=== PATIENT | female | born 1935 | race Caucasian/White ===

== ENCOUNTER 2016-11-07 11:09 | Inpatient (IN) | payer MEDICARE, OTHER ==
[~2016-11-07] VITALS: Ht 160 cm; Wt 45.2 kg
[2016-11-07] VITALS (9 sets, daily range): BP systolic 138–188; BP diastolic 60–84; PULSE 58–76; RESP 18; TEMP 97.6–98; O2SAT 94–99
[~2016-11-07 11:09] MED LIST: ACET325T PO; AMLO5TAB2 PO; ASPI-110 PO; CITA10TA4 PO; LEVO50TA4 PO; METO25TA3 PO; MIRTA15 PO; TRAZ50TA12 PO
--- NOTE | 2016-11-07 11:58 | PD ---
HPI Chief Complaint: Fall Time Seen by Provider: 11:33 Travel History International Travel<30 days: No Contact w/Intl Traveler<30days: No Traveled to known affect area: No History of Present Illness HPI Patient is a 81-year-old female with history of dementia and who is on baby aspirin, was brought to emergency room from home by EMS after fall today. Patient is alert and oriented to person and place, reports that she does not know what happened today, reports that she must have fallen today. Unsure how long the patient was on the ground prior to being found. Unsure if patient had a syncopal episode. Patient only complains of pelvic pain with b/l hip pain and neck pain. Call made to patient's son further information. PFSH Past Medical History Alzheimer's Disease: Yes Arthritis: Yes Asthma: Yes Autoimmune Disease: No Blood Disorders: No Anxiety: No Depression: Yes Heart Rhythm Problems: No Cancer: No Cardiac Catheterization: Yes Cardiovascular Problems: Yes (OPEN HEART, HTN) High Cholesterol: Yes Chemotherapy: No Chest Pain: Yes Congestive Heart Failure: Yes Coronary Artery Disease: Yes Dementia: Yes Diabetes: Yes Endocrine: Yes Gastrointestinal Disorders: Yes Glaucoma: No Genitourinary: No Headaches: Yes Hypertension: Yes Immune Disorder: No Implanted Vascular Access Dvce: No Insomnia: Yes Kidney Stones: No Musculoskeletal: Yes Neurologic: Yes (PERIPHERAL NEUROPATHY) Psychiatric: No Reproductive: No Respiratory: Yes Myocardial Infarction: Yes (1999) Radiation Therapy: No Renal Failure: No Seizures: No Sickle Cell Disease: No Sleep Apnea: Yes (NO CPAP MACHINE) Thyroid Disease: Yes (HYPO) Ulcer: Yes PNEUMOCCOCAL Vaccine (Year): 1 ?: Not Menopausal: Yes : 3 Para: 3 Past Surgical History Abdominal Surgery: Yes AICD: No Cardiac Surgery: No (CABG TIMES 1999) Coronary Artery Bypass Graft: Yes (x2) Ear Surgery: No Eye Surgery: No Genitourinary Surgery: No Gynecologic Surgery: No Oral Surgery: No Pacemaker: No Thoracic Surgery: No Tonsillectomy: Yes Other Surgery: Yes (NEG BIOPSY LT BREAST) Social History Alcohol Use: No Tobacco Use: No Substance Use: No Allergies-Medications (Allergen,Severity, Reaction): Coded Allergies: Penicillin (Verified Allergy, Severe, 11/07/16) Zocor (Verified Allergy, Severe, 11/07/16) Shrimp (Verified Allergy, Intermediate, RASH AND SWELLING, 11/07/16) Sulfa (Verified Allergy, Mild, 11/07/16) Reported Meds & Prescriptions Reported Meds & Active Scripts Active Acetaminophen 325 Mg Tab 650 Mg PO Q4H PRN Reported Protonix (Pantoprazole Sodium) 40 Mg Tab 40 Mg PO HS Baclofen 10 Mg Tab 10 Mg PO HS Loratadine 10 Mg Tab 10 Mg PO DAILY Mirtazapine 15 Mg Tab 15 Mg PO HS Amlodipine (Amlodipine Besylate) 5 Mg Tab 5 Mg PO HS Trazodone (Trazodone HCl) 50 Mg Tab 50 Mg PO HS Aspirin 81 (Aspirin) 81 Mg Tabdr 81 Mg PO DAILY Metoprolol Tartrate 25 Mg Tab 25 Mg PO BID Levothyroxine (Levothyroxine Sodium) 50 Mcg Tab 50 Mcg PO DAILY Citalopram (Citalopram Hydrobromide) 10 Mg Tab 10 Mg PO DAILY Review of Systems ROS Limitations: Altered Mental Status General / Constitutional: No: Fever Eyes: No: Visual changes HENT: Positive: Neck Pain, No: Headaches Cardiovascular: No: Chest Pain or Discomfort Respiratory: No: Shortness of Breath Gastrointestinal: No: Abdominal Pain Genitourinary: No: Dysuria Musculoskeletal: Positive: Pain (hip pain and pelvic pain) Skin: No Rash Neurologic: Positive: Headache, No: Weakness Psychiatric: No: Depression Endocrine: No: Polydipsia Hematologic/Lymphatic: No: Easy Bruising Physical Exam Narrative GENERAL: NAD SKIN: Warm and dry. HEAD: Atraumatic. Normocephalic. EYES: Pupils equal and round. No scleral icterus. No injection or drainage. ENT: No nasal bleeding or discharge. Mucous membranes pink and moist. NECK: Trachea midline. No JVD. Patient in C-spine precautions - patient with paraspinal muscle tenderness b/l CARDIOVASCULAR: Regular rate and rhythm. No murmur appreciated. RESPIRATORY: No accessory muscle use. Clear to auscultation. Breath sounds equal bilaterally. GASTROINTESTINAL: Abdomen soft, non-tender, nondistended. Hepatic and splenic margins not palpable. MUSCULOSKELETAL: No obvious deformities. No clubbing. No cyanosis. Patient with pain to the right pelvis, patient with bilateral hip pain - patient with pain with range of motion to both hips.. NEUROLOGICAL: Awake and alert to person and place. Normal speech. Data Data Last Documented VS Vital Signs Date Time Temp Pulse Resp B/P Pulse Ox O2 Delivery O2 Flow Rate FiO2 11/07/16 11:38 97.6 60 18 188/80 96 Orders Electrocardiogram (11/07/16 11:43) Prothrombin Time / Inr (Pt) (11/07/16 11:43) Act Partial Throm Time (Ptt) (11/07/16 11:43) Complete Blood Count With Diff (11/07/16 11:43) Comprehensive Metabolic Panel (11/07/16 11:43) Creatine Kinase (Cpk) (11/07/16 11:43) Troponin I (11/07/16 11:43) Urinalysis - C+S If Indicated (11/07/16 11:43) Ct Brain W/O Iv Contrast(Rout) (11/07/16 11:43) Chest, Single Ap (11/07/16 11:43) Ecg Monitoring (11/07/16 11:43) Iv Access Insert/Monitor (11/07/16 11:43) Oximetry (11/07/16 11:43) Blood Glucose (11/07/16 11:43) Ct Cerv Spine W/O Contrast (11/07/16 11:43) Hip, Uni(Ap&Lat) Wo Ap Pelvis (11/07/16 ) Hip, Uni(Ap&Lat) W Ap Pelvis (11/07/16 ) Morphine Inj (Morphine Inj) (11/07/16 12:15) Admit Order (Ed Use Only) (11/07/16 13:37) Mri Brain W&W/O Contrast (11/07/16 ) Labs Laboratory Tests Test 11/07/16 11:41 White Blood Count 6.7 TH/MM3 Red Blood Count 4.21 MIL/MM3 Hemoglobin 12.2 GM/DL Hematocrit 37.2 % Mean Corpuscular Volume 88.4 FL Mean Corpuscular Hemoglobin 29.1 PG Mean Corpuscular Hemoglobin 32.9 % Concent Red Cell Distribution Width 13.7 % Platelet Count 269 TH/MM3 Mean Platelet Volume 7.2 FL Neutrophils (%) (Auto) 65.2 % Lymphocytes (%) (Auto) 24.4 % Monocytes (%) (Auto) 6.5 % Eosinophils (%) (Auto) 3.4 % Basophils (%) (Auto) 0.5 % Neutrophils # (Auto) 4.3 TH/MM3 Lymphocytes # (Auto) 1.6 TH/MM3 Monocytes # (Auto) 0.4 TH/MM3 Eosinophils # (Auto) 0.2 TH/MM3 Basophils # (Auto) 0.0 TH/MM3 CBC Comment DIFF FINAL Differential Comment Prothrombin Time 10.7 SEC Prothromb Time International 1.0 RATIO Ratio Activated Partial 22.9 SEC Thromboplast Time Sodium Level 139 MEQ/L Potassium Level 4.3 MEQ/L Chloride Level 107 MEQ/L Carbon Dioxide Level 28.1 MEQ/L Anion Gap 4 MEQ/L Blood Urea Nitrogen 36 MG/DL Creatinine 1.43 MG/DL Estimat Glomerular Filtration 35 ML/MIN Rate Random Glucose 114 MG/DL Calcium Level 8.9 MG/DL Total Bilirubin 0.3 MG/DL Aspartate Amino Transf 17 U/L (AST/SGOT) Alanine Aminotransferase 15 U/L (ALT/SGPT) Alkaline Phosphatase 75 U/L Total Creatine Kinase 52 U/L Troponin I LESS THAN 0.02 NG/ML Total Protein 7.3 GM/DL Albumin 3.7 GM/DL MDM Medical Decision Making Medical Screen Exam Complete: Yes Emergency Medical Condition: Yes Interpretation(s) Vital Signs Date Time Temp Pulse Resp B/P Pulse Ox O2 Delivery O2 Flow Rate FiO2 11/07/16 11:38 97.6 60 18 188/80 96 Differential Diagnosis Differential includes: Syncope, TIA, CVA, arrhythmia, electrolyte abnormality, mechanical fall, hip fracture, pelvic fracture, UTI, possible seizure Narrative Course Patient is an 81-year-old female who is brought to the emergency room after an unwitnessed fall at home. Patient with history of dementia, cannot provide history of present illness at this time. Call made to Malvin (pt's son) [phone], reports that patient refuses to use her walker, reports that he was downstairs and heard a "loud thump." Reports that she was unresponsive for a few minutes when he went to check up on her. Reports that she did complain of head/neck and hip pain. She did not ambulate after fall. Reports that patient does take a baby aspirin daily. Son reports that patient does have hx of dementia at baseline. 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 CAT scans of the head, neck ordered, hip, chest, bilateral pelvis ordered as well. Labs ordered. We'll continue to monitor patient. CT of the head: 1 cm focal area of high density only seen on a single upper image along the upper left parietal lobe. Diagnosis includes small hemorrhage, radiologist recommends MRI imaging at this time. MRI ordered. Last Impressions Head CT 11/07/16 1143 Signed Impressions: Service Date/Time: Monday, November 07, 2016 12:39 - CONCLUSION: 1 cm focal area of high density seen only on a single upper image along the upper left parietal lobe. The differential diagnosis includes volume averaging of the skull versus small hemorrhage. This could be further evaluated with MRI imaging with multiplanar sequencing. Barrett Cruz MD Chest X-Ray 11/07/16 1143 Signed Impressions: Service Date/Time: Monday, November 07, 2016 12:26 - CONCLUSION: No acute disease. Barrett Cruz MD MRI with no acute hemorrhage Critical Care Narrative Aggregate critical care time was 30 minutes. Time to perform other separately billable procedures was not included in the critical care time. My time did not include minutes spent treating any other patients simultaneously or on activities that did not directly contribute to the patient's treatment. The services I provided to this patient were to treat and/or prevent clinically significant deterioration that could result in: , decompensation, deterioration I provided critical care services requiring my management, as noted below: Chart data review, documentation time, medication orders and management, vital sign assessments/reviewing monitor data, ordering and reviewing lab tests, ordering and interpreting/reviewing x-rays and diagnostic studies, care of the patient and discussion of the patient with the admitting physicians. Physician Communication Physician Communication case discussed with Dr. Streeter's LIABILITY ANALYST who accepts pt to service Diagnosis Primary Impression: Syncope and collapse Additional Impression: possible intracranial hemorrhage Admitting Information Admitting Physician Requests: Rose Khan DO Nov 07, 2016 11:58
[2016-11-07] MEDS ORDERED: MORPHINE SULFATE 4 MG/ML INJ IV PUSH ONE (12:15)
[2016-11-07 12:18] LABS: AUTOMATED NEUTROPHIL # 4.3 TH/MM3 (1.8-7.7); BASOPHIL % 0.5 % (0.0-2.0); EOSINOPHIL # 0.2 TH/MM3 (0-0.4); EOSINOPHIL % 3.4 % (0.0-4.0); HEMATOCRIT 37.2 % (35.0-46.0); HEMO FLAGS DIFF FINAL; LYMPH % 24.4 % (9.0-44.0); LYMPHOCYTE # 1.6 TH/MM3 (1.0-4.8); MEAN CELL VOLUME 88.4 FL (80.0-100.0); MEAN CORPUSCULAR HEMOGLOBIN 29.1 PG (27.0-34.0); MEAN CORPUSCULAR HGB CONC 32.9 % (32.0-36.0); MONO % 6.5 % (0.0-8.0); NEUT % 65.2 % (16.0-70.0); PLATELET COUNT 269 TH/MM3 (150-450); RED BLOOD COUNT 4.21 MIL/MM3 (4.00-5.30); RED CELL DISTRIBUTION WIDTH 13.7 % (11.6-17.2); WHITE BLOOD COUNT 6.7 TH/MM3 (4.0-11.0)
[2016-11-07 12:24] LABS: APTT (PATIENT) 22.9 SEC (24.3-30.1); PROTHROMBIN TIME - PATIENT 10.7 SEC (9.8-11.6)
[2016-11-07 12:35] LABS: ALT (GPT) 15 U/L (10-53); ANION GAP 4 MEQ/L (5-15); AST (GOT) 17 U/L (15-37); BICARBONATE 28.1 MEQ/L (21.0-32.0); BLOOD UREA NITROGEN 36 MG/DL (7-18); CHLORIDE 107 MEQ/L (98-107); GLOMERULAR FILTRATION RATE 35 ML/MIN (>89); POTASSIUM 4.3 MEQ/L (3.5-5.1); SODIUM (NA) 139 MEQ/L (136-145)
[2016-11-07 12:38] LABS: ALKALINE PHOSPHATASE 75 U/L (45-117); TOTAL BILIRUBIN ADULT 0.3 MG/DL (0.2-1.0)
[2016-11-07 12:40] LABS: CREATINE KINASE 52 U/L (26-192)
--- NOTE | 2016-11-07 12:55 | RADRPT ---
EXAM DATE/TIME: 11/07/2016 12:39 [facility] COMPARISON: CT BRAIN W/O CONTRAST, February 20, 2016, 16:54. CT BRAIN W/O CONTRAST, July 24, 2016, 21:26. INDICATIONS : Trauma, fall. RADIATION DOSE: 34.22 CTDIvol (mGy) MEDICAL HISTORY : Alzheimer's Hypertension. Diabetes mellitus type 2. SURGICAL HISTORY : None. ENCOUNTER: Initial ACUITY: 1 day PAIN SCALE: 0/10 LOCATION: cranial TECHNIQUE: Multiple contiguous axial images were obtained of the head. Using automated exposure control and adj ustment of the mA and/or kV according to patient size, radiation dose was kept as low as reasonably a chievable to obtain optimal diagnostic quality images. FINDINGS: CEREBRUM: The ventricles are normal for age with mild atrophic change. No evidence of midline shift, or acute i nfarction. On image #28 there is a 1 cm focal area of high density along the left high parietal lobe only see on this image. No extra-axial fluid collections are seen. POSTERIOR FOSSA: The cerebellum and brainstem are intact. The 4th ventricle is midline. The cerebellopontine angle i s unremarkable. EXTRACRANIAL: The visualized portion of the orbits is intact. SKULL: The calvaria is intact. No evidence of skull fracture. CONCLUSION: 1 cm focal area of high density seen only on a single upper image along the upper left parietal lobe. The differential diagnosis includes volume averaging of the skull versus small hemorrhage. This coul d be further evaluated with MRI imaging with multiplanar sequencing. Barrett Cruz MD on November 07, 2016 at 12:50 Board Certified Radiologist. This report was verified electronically.
--- NOTE | 2016-11-07 13:00 | RADRPT ---
EXAM DATE/TIME: 11/07/2016 12:26 [facility] COMPARISON: CHEST SINGLE AP, January 23, 2016, 8:26. INDICATIONS : Pain from fall. MEDICAL HISTORY : None. SURGICAL HISTORY : CABG. ENCOUNTER: Initial ACUITY: 1 day PAIN SCORE: 6/10 LOCATION: Right chest FINDINGS: A single view of the chest demonstrates the lungs to be symmetrically aerated without evidence of mas s, infiltrate or effusion. The patient is status post median sternotomy. The cardiomediastinal conto urs are unremarkable. Chronic rotator cuff degeneration is noted in the right shoulder with superior migration of the humeral head.. CONCLUSION: No acute disease. Barrett Cruz MD on November 07, 2016 at 12:57 Board Certified Radiologist. This report was verified electronically.
--- NOTE | 2016-11-07 13:12 | RADRPT ---
EXAM DATE/TIME: 11/07/2016 12:41 [facility] COMPARISON: CT CERVICAL SPINE W/O CONTRAST, February 20, 2016, 16:54. INDICATIONS: Trauma, fall. RADIATION DOSE: 34.22 CTDIvol (mGy) MEDICAL HISTORY: Alzheimer's Hypertension. Diabetes mellitus type 2. SURGICAL HISTORY: None. ENCOUNTER: Initial ACUITY: 1 day PAIN SCALE: 0/10 LOCATION: Neck TECHNIQUE: Volumetric scanning of the cervical spine was performed. Multiplanar reconstructions in the sagittal, coronal and oblique axial planes were performed. Using automated exposure control and adjustment o f the mA and/or kV according to patient size, radiation dose was kept as low as reasonably achievable to obtain optimal diagnostic quality images. FINDINGS: There is good visualization of the cervical spine. Degenerative changes are seen at C1 and C2. C2-C3: The bony spinal canal is normal in size. No evidence of disc bulge or herniation. The neural forami na are bilaterally patent. C3-C4: Mild uncinate ridging is present with minimal bilateral neural foramina encroachment. C4-C5: Moderate uncinate ridging is present with mild neural foramina encroachment on the left when compared to the right. C5-C6: Moderate uncinate ridging is present without significant spinal stenosis or neural foramina encroachm ent. C6-C7: There is minimal central stenosis. Neural foramina adequate. C7-T1: Unremarkable. CONCLUSION: Degenerative changes without fracture. Melvin Bustillos MD FACR on November 07, 2016 at 13:04 Board Certified Radiologist. This report was verified electronically.
--- NOTE | 2016-11-07 13:14 | RADRPT ---
EXAM DATE/TIME: 11/07/2016 12:29 [facility] COMPARISON: No previous studies available for comparison. INDICATIONS: Pain from fall. MEDICAL HISTORY: None. SURGICAL HISTORY: None. ENCOUNTER: Initial ACUITY: 1 day PAIN SCORE: 10/10 LOCATION: Bilateral pelvis FINDINGS: Degenerative changes are seen about the right hip. Alignment is anatomic. Fracture is not appreciat ed. CONCLUSION: Degenerative change without fracture. Melvin Bustillos MD FACR on November 07, 2016 at 13:03 Board Certified Radiologist. This report was verified electronically.
--- NOTE | 2016-11-07 13:22 | RADRPT ---
EXAM DATE/TIME: 11/07/2016 12:34 [facility] COMPARISON: No previous studies available for comparison. INDICATIONS: Pain from fall. MEDICAL HISTORY: None. SURGICAL HISTORY: None. ENCOUNTER: Initial ACUITY: 1 day PAIN SCORE: 10/10 LOCATION: Bilateral pelvis FINDINGS: Degenerative changes are seen about the left hip. Alignment is anatomic. Fracture is not appreciate d. CONCLUSION: Degenerative change without fracture. Melvin Bustillos MD FACR on November 07, 2016 at 13:13 Board Certified Radiologist. This report was verified electronically.
[2016-11-07] MEDS ORDERED: ACETAMINOPHEN 325 MG TAB PO PRN (14:30)
[2016-11-07] MEDS ORDERED: SODIUM CHLORIDE 0.9% FLUSH 5 ML FLUSH FLUSH PRN (14:30)
[2016-11-07] MEDS ORDERED: ONDANSETRON HCL 4 MG/2 ML VIAL IVP PRN (14:30)
[2016-11-07] MEDS ORDERED: NALOXONE HCL 0.4 MG/ML AMP IV PRN (14:30)
[2016-11-07] MEDS ORDERED: PROT40TA PO (15:07)
[2016-11-07] MEDS ORDERED: BACL10TA PO (15:07)
[2016-11-07] MEDS ORDERED: LORA10TA PO (15:07)
[2016-11-07] MEDS ORDERED: GADOBENATE DIM PF 529 MG/ML 10ML VIAL (for RAD MRI) IV ONE (15:53)
--- NOTE | 2016-11-07 15:53 | RADRPT ---
EXAM DATE/TIME: 11/07/2016 15:10 [facility] COMPARISON: CT BRAIN W/O CONTRAST, November 07, 2016, 12:39. INDICATIONS : Trauma patient status post fall with abnormal head CT demonstrating a 1 cm focal area of high density along the upper left parietal lobe. CONTRAST: 10 cc Multihance (gadobenate) IV MEDICAL HISTORY : Stroke Dementia. SURGICAL HISTORY : CABG Tonsillectomy. ENCOUNTER: Initial ACUITY: 2 day PAIN SCORE: 0/10 LOCATION: Brain TECHNIQUE: Multiplanar, multisequence MRI of the brain was performed both prior to and following the administrat ion of paramagnetic contrast. FINDINGS: CEREBRUM: The ventricles are normal for age. No evidence of midline shift, mass lesion, hemorrhage or acute in farction. No extraaxial fluid collections are seen. The pituitary gland and suprasellar cistern are normal in configuration. WHITE MATTER: No significant signal abnormalities are seen in the white matter. POSTERIOR FOSSA: The cerebellum and brainstem are intact. The 4th ventricle is midline. The cerebellopontine angle is unremarkable. The cerebellar tonsils are normal in position. DIFFUSION IMAGING: No focal areas of restricted diffusion are seen. No evidence of acute infarction. EXTRACRANIAL: The visualized portions of the orbits and paranasal sinuses are unremarkable. There is soft tissue sw elling over the left parietal bone. POST-CONTRAST: No abnormal areas of parenchymal or dural enhancement. No evidence of blood-brain barrier breakdown. CONCLUSION: 1. No acute hemorrhage, mass or infarction. 2. No correlate for the focal area of increased density seen on the CT. This is consistent with volum e averaging with the adjacent skull. 3. Soft tissue swelling over the left parietal bone. Barrett Cruz MD on November 07, 2016 at 15:48 Board Certified Radiologist. This report was verified electronically.
--- NOTE | 2016-11-07 16:36 | HHI.HP ---
[facility] Chapito Gary MD Admission Diagnosis Syncope, Possible ICH Diagnoses: (Alicia Araiza) Travel History International Travel<30 Days: No Contact w/Intl Traveler <30 Da: No Traveled to Known Affected Are: No (Alicia Araiza) History of Present Illness This is an 81 year old elderly female with PMHx of dementia, previous falls, CKD , CAD and previous CABG, diet controlled diabetes. She is on baby ASA. She was brought in via EMS after fall. According to son, she is ambulatory with walker, has dementia but able to feed self and walk to bathroom. She is supposed to use walker but refuses often. She has had previous falls in the past, last one was July 2016 and required hospitalization for monitoring. Son, Malvin, who is the caregiver heard the patient fall and found her laying on her back. She was just staring, non responsive, not following commands. After 15 minutes, she started to respond, was able to answer basic questions. She complained of neck, bilat hip, pelvic pain. She is usually alert and oriented to self and others. She doesn't know what happened, doesn't recall preceding symptoms. According to son, she received PT at home and has been doing well. He thinks that she tripped on her shoes, as there is a new rug that he put in her room because he was afraid that she would fall and hit the floor. Pt. evaluated in the ED, initial CT of head done showed questionable area of high density. Brain MRI just completed doesn't show any bleeding. Imaging studies don't show any acute findings. Last Impressions Head CT 11/07/16 1143 Signed Impressions: Service Date/Time: Monday, November 07, 2016 12:39 - CONCLUSION: 1 cm focal area of high density seen only on a single upper image along the upper left parietal lobe. The differential diagnosis includes volume averaging of the skull versus small hemorrhage. This could be further evaluated with MRI imaging with multiplanar sequencing. Barrett Cruz MD Chest X-Ray 11/07/16 1143 Signed Impressions: Service Date/Time: Monday, November 07, 2016 12:26 - CONCLUSION: No acute disease. Barrett Cruz MD Hip and Pelvis X-Ray 11/07/16 0000 Signed Impressions: Service Date/Time: Monday, November 07, 2016 12:29 - CONCLUSION: Degenerative change without fracture. Melvin Bustillos MD FACR Hip X-Ray 11/07/16 0000 Signed Impressions: Service Date/Time: Monday, November 07, 2016 12:34 - CONCLUSION: Degenerative change without fracture. Melvin Bustillos MD FACR Brain MRI 11/07/16 0000 Signed Impressions: Service Date/Time: Monday, November 07, 2016 15:10 - CONCLUSION: 1. No acute hemorrhage, mass or infarction. 2. No correlate for the focal area of increased density seen on the CT. This is consistent with volume averaging with the adjacent skull. 3. Soft tissue swelling over the left parietal bone. Barrett Cruz MD Laboratory work up essentially unremarkable, creat slightly more elevated than norm. Son denies any recent fever, chills. Had been eating okay. Pt. admitted for further evaluation and treatment. (Alicia Araiza) Review of Systems ROS Limitations: Poor Historian Musculoskeletal: COMPLAINS OF: Joint pain, Back pain, Neck pain (Alicia Araiza) Past Family Social History Past Medical History 1. Coronary disease with history of bypass in 1999 2. Hypertension 3. Diabetes which her [id number] states is diet controlled. 4. Hyperlipidemia 5. Alzheimer's 6. Arthritis 7. Hypothyroidism 8. Chronic renal insufficiency per the patient's son. Past Surgical History 1. She had a bypass in 1999. 2. She has had heart catheterizations. 3. Left breast biopsy that was benign. Reported Medications Reported Meds & Active Scripts Active Acetaminophen 325 Mg Tab 650 Mg PO Q4H PRN Reported Protonix (Pantoprazole Sodium) 40 Mg Tab 40 Mg PO HS Baclofen 10 Mg Tab 10 Mg PO HS Loratadine 10 Mg Tab 10 Mg PO DAILY Mirtazapine 15 Mg Tab 15 Mg PO HS Amlodipine (Amlodipine Besylate) 5 Mg Tab 5 Mg PO HS Trazodone (Trazodone HCl) 50 Mg Tab 50 Mg PO HS Aspirin 81 (Aspirin) 81 Mg Tabdr 81 Mg PO DAILY Metoprolol Tartrate 25 Mg Tab 25 Mg PO BID Levothyroxine (Levothyroxine Sodium) 50 Mcg Tab 50 Mcg PO DAILY Citalopram (Citalopram Hydrobromide) 10 Mg Tab 10 Mg PO DAILY (Alicia Araiza) Allergies: Coded Allergies: Penicillin (Verified Allergy, Severe, 11/07/16) Zocor (Verified Allergy, Severe, 11/07/16) Shrimp (Verified Allergy, Intermediate, RASH AND SWELLING, 11/07/16) Sulfa (Verified Allergy, Mild, 11/07/16) Active Ordered Medications Inpatient Medications Acetaminophen (Tylenol) 650 mg Q4H PRN PO TEMP > 100.4; Start 11/07/16 at 14:30 IV Flush (NS Flush) 2 ml BID FLUSH ; Start 11/07/16 at 21:00 Morphine Sulfate 4 mg 4 mg ONCE ONCE IV PUSH Last administered on 11/07/16t 12 :15; Start 11/07/16 at 12:15; Stop 11/07/16 at 12:16; Status DC Naloxone HCl (Narcan Inj) 0.4 mg UNSCH PRN IV SEE LABEL COMMENTS; Start at 14:30 Ondansetron HCl (Zofran Inj) 4 mg Q6H PRN IVP NAUSEA OR VOMITING; Start at 14:30 Sodium Chloride (NS 1000 ml Inj) 1,000 ml @ 100 mls/hr Q10H IV ; Start at 15:00 Family History Positive for coronary artery disease. Social History Pt lives at home with son, Malvin, who is her caregiver. She has dementia. Uses a walker but forgets most of the time. Has frequent falls. The patient is a nonsmoker. Denies alcohol or illicit drugs. (Alicia Araiza) Physical Exam Vital Signs Vital Signs Date Time Temp Pulse Resp B/P Pulse Ox O2 Delivery O2 Flow Rate FiO2 11/07/16 14:29 97.6 60 18 140/65 94 Room Air 11/07/16 11:38 97.6 60 18 188/80 96 Physical Exam GENERAL: This is a well-nourished, well-developed patient, in no apparent distress. SKIN: No rashes, ecchymoses or lesions. Cool and dry. HEAD: Atraumatic. Normocephalic. No temporal or scalp tenderness. EYES: Pupils equal round and reactive. Extraocular motions intact. No scleral icterus. No injection or drainage. ENT: Nose without bleeding, purulent drainage or septal hematoma. Throat without erythema, tonsillar hypertrophy or exudate. Uvula midline. Airway patent. NECK: Trachea midline. No JVD or lymphadenopathy.Cervical collar in place, mild tenderness post. nect. CARDIOVASCULAR: Regular rate and rhythm without murmurs, gallops, or rubs. RESPIRATORY: Clear to auscultation. Breath sounds equal bilaterally. No wheezes , rales, or rhonchi. GASTROINTESTINAL: Abdomen soft, non-tender, nondistended. No hepato-splenomegaly , or palpable masses. No guarding. MUSCULOSKELETAL: C/O pain to right hip with extension, no deformity note, no leg length discrepancy. C/O pain to right elbow, no deformity, mild bruising noted. No other joint abnormality. Bilat legs with 2+ pedal pulses. No pedal edema. NEUROLOGICAL: Awake, alert to self, son, place. Not sure of city. No focal deficits. Speech clear. Speaks and understands Hebrew, some Iranian. Follows simple commands. Pt. with dementia. Laboratory Laboratory Tests Test 11/07/16 11:41 White Blood Count 6.7 Red Blood Count 4.21 Hemoglobin 12.2 Hematocrit 37.2 Mean Corpuscular Volume 88.4 Mean Corpuscular Hemoglobin 29.1 Mean Corpuscular Hemoglobin 32.9 Concent Red Cell Distribution Width 13.7 Platelet Count 269 Mean Platelet Volume 7.2 Neutrophils (%) (Auto) 65.2 Lymphocytes (%) (Auto) 24.4 Monocytes (%) (Auto) 6.5 Eosinophils (%) (Auto) 3.4 Basophils (%) (Auto) 0.5 Neutrophils # (Auto) 4.3 Lymphocytes # (Auto) 1.6 Monocytes # (Auto) 0.4 Eosinophils # (Auto) 0.2 Basophils # (Auto) 0.0 CBC Comment DIFF FINAL Differential Comment Prothrombin Time 10.7 Prothromb Time International 1.0 Ratio Activated Partial 22.9 Thromboplast Time Sodium Level 139 Potassium Level 4.3 Chloride Level 107 Carbon Dioxide Level 28.1 Anion Gap 4 Blood Urea Nitrogen 36 Creatinine 1.43 Estimat Glomerular Filtration 35 Rate Random Glucose 114 Calcium Level 8.9 Total Bilirubin 0.3 Aspartate Amino Transf 17 (AST/SGOT) Alanine Aminotransferase 15 (ALT/SGPT) Alkaline Phosphatase 75 Total Creatine Kinase 52 Troponin I LESS THAN 0.02 Total Protein 7.3 Albumin 3.7 (Alicia Araiza) Result Diagram: 11/07/16 1141 11/07/16 1141 Imaging Last Impressions Head CT 11/07/16 1143 Signed Impressions: Service Date/Time: Monday, November 07, 2016 12:39 - CONCLUSION: 1 cm focal area of high density seen only on a single upper image along the upper left parietal lobe. The differential diagnosis includes volume averaging of the skull versus small hemorrhage. This could be further evaluated with MRI imaging with multiplanar sequencing. Barrett Cruz MD Chest X-Ray 11/07/16 1143 Signed Impressions: Service Date/Time: Monday, November 07, 2016 12:26 - CONCLUSION: No acute disease. Barrett Cruz MD Brain MRI 11/07/16 0000 Signed Impressions: Service Date/Time: Monday, November 07, 2016 15:10 - CONCLUSION: 1. No acute hemorrhage, mass or infarction. 2. No correlate for the focal area of increased density seen on the CT. This is consistent with volume averaging with the adjacent skull. 3. Soft tissue swelling over the left parietal bone. Barrett Cruz MD (Alicia Araiza) Assessment and Plan Problem List: (1) Fall (2) Syncope and collapse (3) CAD (coronary artery disease) (4) Hypertension (5) Hyperlipidemia (6) Hypothyroidism (7) DM (diabetes mellitus) (8) Hx of CABG (9) Depression Assessment and Plan Admit to Dr. Streeter 81 year old elderly female admitted after recurrent fall, hx dementia. Initial CT concerning for bleed, brain MRI shows no bleed. Unclear if syncope, vs seizure or mechanical fall. S/P fall with closed head injury, no bleed. Etiology unclear, possible syncope vs seizure -Neuro checks -Continue with IVF -Telemetry monitoring -Orthostatics q shift x 3 -EEG -2D echo -Carotid US -Hold ASA for now -PT for evaluation and treatment. Dementia -not on medications -monitor Hx Depression -Continue with home meds CKD III -Continue with cautious -Monitor BMP Hx CAD, CABG, stable -Monitor -Continue home medications HTN -Continue home meds Diet controlled diabetes, stable -Monitor for now SCDs for DVT prophylaxis Home medications reviewed, initiated as indicated Plan of care discussed with attending, RN, and pt's sone. Further management of the patient will be dependent on the hospital course. This patient was seen by myself and Dr. Streeter, this H/P is written on his behalf. (Alicia Araiza) Assessment and Plan Patient seen and examined on the day of admission [id number] time spent with patient Meds and labs reviewed Chart reviewed Discussed with RN Discussed with ROSA about plan of care Discussed with patien and family member at bedside (Ninoska Streeter MD) Physician Certification 2 Midnight Certification Type: Admission for Inpatient Services Order for Inpatient Services The services are ordered in accordance with Medicare regulations or non- Medicare payer requirements, as applicable. In the case of services not specified as inpatient-only, they are appropriately provided as inpatient services in accordance with the 2-midnight benchmark. Estimated LOS (days): 2 2 days is the estimated time the patient will need to remain in the hospital, assuming treatment plan goals are met and no additional complications. Post-Hospital Plan: Not yet determined (Alicia Araiza) Problem Qualifiers (1) Fall: Qualified Code: W19.XXXA - Fall, initial encounter (2) CAD (coronary artery disease): Qualified Code: I25.10 - Coronary artery disease involving [place] coronary artery of [place] heart without angina pectoris (3) Hypertension: Qualified Code: I10 - Essential hypertension (4) Hyperlipidemia: Qualified Code: E78.5 - Hyperlipidemia, unspecified hyperlipidemia type (5) Hypothyroidism: Qualified Code: E03.9 - Hypothyroidism, unspecified type (6) DM (diabetes mellitus): Qualified Code: E11.9 - Type 2 diabetes mellitus without complication, without long-term current use of insulin (7) Depression: Qualified Code: F32.9 - Depression, unspecified depression type Alicia Araiza Nov 07, 2016 16:36 Ninoska Streeter MD Nov 08, 2016 15:13
[2016-11-07] MEDS: SODIUM CHLOR 0.9% 1000 ML INJ 1,000 ML IV SCH (16:55)
--- NOTE | 2016-11-07 17:53 | RADRPT ---
EXAM DATE/TIME: 11/07/2016 16:32 [place] COMPARISON: US CAROTID ARTERIES, June 22, 2012, 7:40. INDICATIONS : Syncope. MEDICAL HISTORY : Hypothyroidism. Hypercholesterolemia. Alzheimer's. Hearing loss. Cerebrovascular accident. [place]. Peripheral neuropathy. heart attack. Congestive heart failure. Coronary artery disease. Hyperlipidemi a. Hypertension. Asthma. Sleep apnea. Ulcer. . Arthritis. Diabetes. Buipolar disorder. Depre ssion. Measles. Insomnia. SURGICAL HISTORY : Tonsillectomy. CABG. Breast biopsy. Right rotator cuff repair. Cardiac catheterization. ENCOUNTER: Subsequent ACUITY: 1 day PAIN SCORE: 0/10 LOCATION: Bilateral neck PEAK SYSTOLIC VELOCITIES (cm/sec): ICA/CCA RATIO: Right: 1.1 Left: 1.2 ICA: Right: 98 Left: 119 CCA: Right: 91 Left: 103 ECA: Right: 110 Left: 113 VERTEBRAL: Right: 58 antegrade Left: 77 antegrade Elevated flow velocities and ICA/CCA ratios have been found to correlate with increased degrees of vessel stenosis, calculated as percentage of diameter relative to a normal segment of distal ICA/CCA FINDINGS: RIGHT CAROTID: No significant stenosis is visualized. Mild plaque is present. The waveforms are within normal limits . LEFT CAROTID: No significant stenosis is visualized. Mild plaque is present. The waveforms are within normal limit s. VERTEBRAL ARTERIES: Antegrade flow is seen in both vertebral arteries. MISCELLANEOUS: None. CONCLUSION: Mild bilateral plaquing with no evidence of stenosis. Barrett Cruz MD on November 07, 2016 at 17:51 Board Certified Radiologist. This report was verified electronically.
[2016-11-07] MEDS: SODIUM CHLORIDE 0.9% FLUSH 5 ML FLUSH FLUSH SCH (21:00)
[2016-11-07] MEDS: PANTOPRAZOLE SOD 40 MG DELAYED RELEASE TAB PO SCH (21:20)
[2016-11-07] MEDS: MIRTAZAPINE 15 MG TAB PO SCH (21:20)
[2016-11-07] MEDS: traZODone HCL 50 MG TAB PO SCH (21:21)
[2016-11-07] MEDS: METOPROLOL TARTRATE 25 MG TAB PO SCH (21:21)
[2016-11-07] MEDS: amLODIPine BESYLATE 5 MG TAB PO SCH (21:21)
[2016-11-08] VITALS (28 sets, daily range): BP systolic 112–169; BP diastolic 44–80; PULSE 59–95; RESP 18; TEMP 97–98; O2SAT 98–99
[2016-11-08] MEDS: SODIUM CHLOR 0.9% 1000 ML INJ 1,000 ML IV SCH ×2 (01:00→11:00)
[2016-11-08] MEDS: LEVOTHYROXINE SODIUM 50 MCG TAB PO SCH (05:46)
[2016-11-08] MEDS: SODIUM CHLORIDE 0.9% FLUSH 5 ML FLUSH FLUSH SCH ×2 (07:43→20:42)
[2016-11-08] MEDS: LORATADINE 10 MG TAB PO SCH (08:20)
[2016-11-08] MEDS: CITALOPRAM HYDROBROMIDE 20 MG TAB PO SCH (08:21)
[2016-11-08] MEDS: METOPROLOL TARTRATE 25 MG TAB PO SCH ×2 (08:21→20:42)
--- NOTE | 2016-11-08 10:44 | HHI.PR ---
Subjective Remarks Patient lying on a recliner without any apparent distress Offering no complaint Denies any headache dizziness Denies any chest pain shortness of breath And denies any abdominal pain nausea vomiting Denies any genitourinary symptoms Review of systems a 10 point system unremarkable Objective Objective Results - Vital Signs Date Time Temp Pulse Resp B/P Pulse Ox O2 Delivery O2 Flow Rate FiO2 11/08/16 10:06 67 11/08/16 09:36 97.0 62 18 140/68 98 11/08/16 09:24 68 11/08/16 08:06 67 11/08/16 07:40 67 11/08/16 06:00 68 11/08/16 05:00 68 11/08/16 04:06 62 18 145/65 99 142/60 169/78 11/08/16 04:00 60 11/08/16 03:00 59 11/08/16 02:00 60 11/08/16 01:00 60 11/08/16 00:00 60 11/07/16 23:00 58 11/07/16 23:00 60 18 145/70 99 11/07/16 22:00 62 11/07/16 21:00 76 11/07/16 20:00 60 11/07/16 19:00 66 11/07/16 19:00 98.0 60 18 146/60 99 11/07/16 18:44 98.0 58 18 138/84 98 11/07/16 17:29 60 18 141/65 99 Nasal Cannula 2 11/07/16 14:29 97.6 60 18 140/65 94 Room Air 11/07/16 11:38 97.6 60 18 188/80 96 I/O 11/07/16 11/07/16 11/07/16 11/08/16 11/08/16 11/08/16 07:00 15:00 23:00 07:00 15:00 23:00 Intake Total 1440 ml Balance 1440 ml Intake Oral 240 ml IV Total 1200 ml # Voids 2 # Bowel Movements 0 Result Diagram: 11/07/16 1141 11/07/16 1141 Imaging Last Impressions Head CT 11/07/16 1143 Signed Impressions: Service Date/Time: Monday, November 07, 2016 12:39 - CONCLUSION: 1 cm focal area of high density seen only on a single upper image along the upper left parietal lobe. The differential diagnosis includes volume averaging of the skull versus small hemorrhage. This could be further evaluated with MRI imaging with multiplanar sequencing. Barrett Cruz MD Chest X-Ray 11/07/16 1143 Signed Impressions: Service Date/Time: Monday, November 07, 2016 12:26 - CONCLUSION: No acute disease. Barrett Cruz MD Brain MRI 11/07/16 0000 Signed Impressions: Service Date/Time: Monday, November 07, 2016 15:10 - CONCLUSION: 1. No acute hemorrhage, mass or infarction. 2. No correlate for the focal area of increased density seen on the CT. This is consistent with volume averaging with the adjacent skull. 3. Soft tissue swelling over the left parietal bone. Barrett Cruz MD Other Results Laboratory Tests Test 11/07/16 11:41 White Blood Count 6.7 Red Blood Count 4.21 Hemoglobin 12.2 Hematocrit 37.2 Mean Corpuscular Volume 88.4 Mean Corpuscular Hemoglobin 29.1 Mean Corpuscular Hemoglobin 32.9 Concent Red Cell Distribution Width 13.7 Platelet Count 269 Mean Platelet Volume 7.2 Neutrophils (%) (Auto) 65.2 Lymphocytes (%) (Auto) 24.4 Monocytes (%) (Auto) 6.5 Eosinophils (%) (Auto) 3.4 Basophils (%) (Auto) 0.5 Neutrophils # (Auto) 4.3 Lymphocytes # (Auto) 1.6 Monocytes # (Auto) 0.4 Eosinophils # (Auto) 0.2 Basophils # (Auto) 0.0 CBC Comment DIFF FINAL Differential Comment Prothrombin Time 10.7 Prothromb Time International 1.0 Ratio Activated Partial 22.9 Thromboplast Time Sodium Level 139 Potassium Level 4.3 Chloride Level 107 Carbon Dioxide Level 28.1 Anion Gap 4 Blood Urea Nitrogen 36 Creatinine 1.43 Estimat Glomerular Filtration 35 Rate Random Glucose 114 Calcium Level 8.9 Total Bilirubin 0.3 Aspartate Amino Transf 17 (AST/SGOT) Alanine Aminotransferase 15 (ALT/SGPT) Alkaline Phosphatase 75 Total Creatine Kinase 52 Troponin I LESS THAN 0.02 Total Protein 7.3 Albumin 3.7 Physical Exam Physical Exam GENERAL: This is a well-nourished, well-developed patient, in no apparent distress. SKIN: No rashes, ecchymoses or lesions. Cool and dry. HEAD: Atraumatic. Normocephalic. No temporal or scalp tenderness. EYES: Pupils equal round and reactive. Extraocular motions intact. No scleral icterus. No injection or drainage. ENT: Airway patent. NECK: Trachea midline. No JVD or lymphadenopathy. CARDIOVASCULAR: Regular rate and rhythm without murmurs, gallops, or rubs. RESPIRATORY: Clear to auscultation. Breath sounds equal bilaterally. No wheezes , rales, or rhonchi. GASTROINTESTINAL: Abdomen soft, non-tender, nondistended. No hepato-splenomegaly , or palpable masses. No guarding. MUSCULOSKELETAL: C/O pain to right hip with extension, no deformity note, no leg length discrepancy. C/O pain to right elbow, no deformity, mild bruising noted. No other joint abnormality. Bilat legs with 2+ pedal pulses. No pedal edema. NEUROLOGICAL: Awake, alert to self, son, place. Not sure of city. No focal deficits. Speech clear. Speaks and understands [place], some [place]. Follows simple commands. Pt. with dementia. A/P Assessment and Plan (1) Fall (2) Syncope and collapse (3) CAD (coronary artery disease) (4) Hypertension (5) Hyperlipidemia (6) Hypothyroidism (7) DM (diabetes mellitus) (8) Hx of CABG (9) Depression Plan 81 year old elderly female admitted after recurrent fall, hx dementia. Initial CT concerning for bleed, brain MRI shows no bleed. Unclear if syncope, vs seizure or mechanical fall. S/P fall with closed head injury, no bleed. Etiology unclear, possible syncope vs seizure -Neuro checks -Continue with IVF -Telemetry monitoring -Orthostatics q shift x 3 -EEG -2D echo -Carotid US -Hold ASA for now -PT for evaluation and treatment. Dementia -not on medications -monitor Hx Depression -Continue with home meds CKD III -Continue with cautious -Monitor BMP Hx CAD, CABG, stable -Monitor -Continue home medications HTN -Continue home meds. Is stable Diet controlled diabetes, stable -Monitor for now . Continue sliding scale insulin a Radiological report reviewed no bleed Labs reviewed On telemetry Awaiting EEG SCDs for DVT prophylaxis Home medications reviewed, initiated as indicated Plan of care discussed with attending, RN, and pt. Further management of the patient will be dependent on the hospital course. Ninoska Streeter MD Nov 08, 2016 10:44
--- NOTE | 2016-11-08 14:12 | EC ---
Study Study Date:11/08/2016 STUDY CONCLUSIONS SUMMARY LEFT VENTRICLE: The cavity size was normal. Wall thickness was increased in a pattern of mild LVH. Systolic function was normal. The estimated ejection fraction was in the range of 60% to 65%. Wall motion was normal; there were no regional wall motion abnormalities. If LV function is below 40, please consider prescribing an ACEI or ARB or document rationale for non-use. PROCEDURE DATA STUDY STATUS: Elective. Procedure: Transthoracic echocardiography. Image quality was good. Scanning was performed from the parasternal, apical, and subcostal acoustic windows. Study completion: The patient tolerated the procedure well. Transthoracic echocardiography. M-mode, complete 2D, complete spectral Doppler, and color Doppler. Patient status: Inpatient. CARDIAC ANATOMY LEFT VENTRICLE: The cavity size was normal. Wall thickness was increased in a pattern of mild LVH. Systolic function was normal. The estimated ejection fraction was in the range of 60% to 65%. Wall motion was normal; there were no regional wall motion abnormalities. AORTIC VALVE: Trileaflet; normal thickness leaflets. Doppler: Transvalvular velocity was within the normal range. There was no stenosis. No regurgitation. Mean gradient: 9mm Hg (S). Peak gradient: 18mm Hg (S). AORTA: Aortic root: The aortic root was normal in size. MITRAL VALVE: Structurally normal valve. Doppler: Transvalvular velocity was within the normal range. There was no evidence for stenosis. Trace regurgitation. Peak gradient: 3mm Hg (D). LEFT ATRIUM: The atrium was normal in size. RIGHT VENTRICLE: The cavity size was normal. Wall thickness was normal. Systolic pressure was within the normal range. PULMONIC VALVE: Doppler: Transvalvular velocity was within the normal range. There was no evidence for stenosis. No regurgitation. TRICUSPID VALVE: Structurally normal valve. Doppler: Transvalvular velocity was within the normal range. Trace regurgitation. PULMONARY ARTERY: The main pulmonary artery was normal-sized. Systolic pressure was within the normal range. RIGHT ATRIUM: The atrium was normal in size. PERICARDIUM: There was no pericardial effusion. SYSTEMIC VEINS: Inferior vena cava: The vessel was normal in size. BASIC MEASUREMENTS ADULT NORMAL Left ventricle LV internal dimension, ED, chordal level, *40 mm 43-52 PLAX LV internal dimension, ES, chordal level, 26 mm 23-38 PLAX Fractional shortening, chordal level, PLAX 35 % >29 LV posterior wall thickness, ED 8.71 mm IVS/LVPW ratio, ED 1.19 <1.3 Ventricular septum Septal thickness, ED 10.4 mm Aortic valve Leaflet separation 17 mm 15-26 Left atrium Anterior-posterior dimension 35 mm Right ventricle RV internal dimension, ED, PLAX 19.2 mm 19-38 BASIC MEASUREMENTS ADULT NORMAL Aortic valve Leaflet separation 17 mm 15-26 Aorta Root diameter, ED 27 mm 20-37 DOPPLER MEASUREMENTS ADULT NORMAL Main pulmonary artery Pressure, S 30 mm Hg =30 Aortic valve Peak velocity, S 211 cm/s Mean velocity, S 140 cm/s VTI, S 42.2 cm Mean gradient, S 9 mm Hg Peak gradient, S 18 mm Hg Mitral valve Peak E-wave velocity 86.4 cm/s Peak A-wave velocity 92.3 cm/s Peak gradient, D 3 mm Hg Peak E/A ratio 0.9 Maximal regurgitant velocity 342 cm/s Tricuspid valve Regurgitant peak velocity 250 cm/s Peak RV-RA gradient, S 25 mm Hg Maximal regurgitant velocity 250 cm/s Systemic veins Estimated CVP 5 mm Hg Right ventricle RV pressure, S *30 mm Hg <30 LEGEND: Mean values are shown as u=mean value. Asterisk (*) carney values outside specified normal range. Prepared and signed by Shubham Gordon [id number]
--- NOTE | 2016-11-08 15:33 | EKG ---
Date Performed: 11/07/2016 Time Performed: 17:01:11 PTAGE: 81 years EKG: SINUS BRADYCARDIA MARKED LEFT AXIS DEVIATION Poor R wave progression across the precordium Nonspecific ST change Compared to prior tracing no significant change. MN interval continues to be mariel rderline prolonged ABNORMAL ECG PREVIOUS TRACING : 07/24/2016 21.09 DOCTOR: Kemar Clement Interpretating Date/Time 11/08/2016 15:32:48
[2016-11-08] MEDS: traZODone HCL 50 MG TAB PO SCH (20:42)
[2016-11-08] MEDS: MIRTAZAPINE 15 MG TAB PO SCH (20:44)
[2016-11-08] MEDS: amLODIPine BESYLATE 5 MG TAB PO SCH (20:44)
[2016-11-08] MEDS: PANTOPRAZOLE SOD 40 MG DELAYED RELEASE TAB PO SCH (20:44)
[2016-11-09] VITALS (26 sets, daily range): BP systolic 111–157; BP diastolic 55–72; PULSE 68–79; RESP 16–18; TEMP 98.1–99.1; O2SAT 96–99
[2016-11-09] MEDS: LEVOTHYROXINE SODIUM 50 MCG TAB PO SCH (05:42)
[2016-11-09 07:31] LABS: BICARBONATE 26.1 MEQ/L (21.0-32.0); POTASSIUM 3.9 MEQ/L (3.5-5.1)
[2016-11-09] MEDS: LORATADINE 10 MG TAB PO SCH (08:47)
[2016-11-09] MEDS: METOPROLOL TARTRATE 25 MG TAB PO SCH ×2 (08:47→21:24)
[2016-11-09] MEDS: SODIUM CHLORIDE 0.9% FLUSH 5 ML FLUSH FLUSH SCH ×2 (08:47→21:24)
[2016-11-09] MEDS: CITALOPRAM HYDROBROMIDE 20 MG TAB PO SCH (08:47)
--- NOTE | 2016-11-09 14:35 | HHI.PR ---
Subjective Remarks Appetite good No Chest pain no shortness of breath No dizziness Alert (Sri Benton) Objective Objective Results - Vital Signs Date Time Temp Pulse Resp B/P Pulse Ox O2 Delivery O2 Flow Rate FiO2 11/09/16 13:00 77 11/09/16 12:00 74 11/09/16 11:00 98.1 68 17 111/55 99 11/09/16 11:00 73 11/09/16 10:00 72 11/09/16 09:00 70 11/09/16 08:00 99.1 76 17 129/67 96 11/09/16 08:00 73 11/09/16 07:00 70 11/09/16 06:00 70 11/09/16 05:00 70 11/09/16 04:00 70 11/09/16 03:45 98.2 72 18 125/72 96 11/09/16 03:00 72 11/09/16 02:00 72 11/09/16 01:00 74 11/09/16 00:00 72 11/08/16 23:30 71 18 140/68 98 11/08/16 23:00 74 11/08/16 22:00 74 11/08/16 21:00 72 11/08/16 20:00 70 11/08/16 19:00 98.0 72 18 112/44 98 11/08/16 19:00 73 11/08/16 18:03 82 11/08/16 16:00 95 11/08/16 15:25 98.0 71 18 138/78 98 11/08/16 15:08 64 I/O 11/08/16 11/08/16 11/08/16 11/09/16 11/09/16 11/09/16 07:00 15:00 23:00 07:00 15:00 23:00 Intake Total 1440 ml 375 ml 240 ml Balance 1440 ml 375 ml 240 ml Intake Oral 240 ml 375 ml 240 ml IV Total 1200 ml # Voids 2 2 # Bowel Movements 0 0 (Sri Benton) Result Diagram: 11/07/16 1141 11/09/16 0632 ROS General: Other (10 point ROS done. Occasional cough otherwise negative assessments) Pulmonary: Cough (Sri Benton) Physical Exam Physical Exam PHYSICAL EXAMINATION GENERAL: This is a well-developed, well-nourished female who appears to be in no acute distress. She is alert and awake, responds to verbal stimuli. HEAD: Normocephalic without any lesion or mass noted. Facial features appear symmetric. OROPHARYNGEAL: Oropharynx without erythema or edema. NECK: Supple. No nuchal rigidity or lymphadenopathy. Trachea midline without deviation. CARDIAC: Regular rhythm, regular rate, S1 and S2 are heard. Murmur systolic grade 3/6, sternal border; no gallops or rubs. LUNGS: Clear to auscultation bilaterally. No wheeze, rhonchi or rales. No use of accessory muscles on inspiration or expiration. ABDOMEN: Soft, nontender, no organomegaly or masses. Bowel sounds are heard in all four quadrants. No rebound. No guarding. EXTREMITIES: no edema. Pulses equal bilateral. no cyanosis. NEUROLOGICAL: Patient mood and affect appropriate. No focal deficit SKIN:Warm and moist, dry Objective Remarks I'm resting fairly well today (Sri Benton) A/P Assessment and Plan (1) Fall (2) Syncope and collapse (3) CAD (coronary artery disease) (4) Hypertension (5) Hyperlipidemia (6) Hypothyroidism (7) DM (diabetes mellitus) (8) Hx of CABG (9) Depression Plan 81 year old elderly female admitted after recurrent fall, hx dementia. Initial CT concerning for bleed, brain MRI shows no bleed. Unclear if syncope, vs seizure or mechanical fall. S/P fall with closed head injury, no bleed. Etiology unclear, possible syncope vs seizure, no further syncopal episodes nor dizziness -Neuro checks, stable every 4 when necessary -Continue with IVF, gentle hydration taken by mouth fluids well -Telemetry monitoring, regular rhythm no known ectopy -Orthostatics q shift x 3, BP stable Good Appetite eating 100% -PT for evaluation and treatment. Dementia -not on medications -monitor Hx Depression -Continue with home meds CKD III -Continue with cautious -Monitor BMP Hx CAD, CABG, stable -Monitor -Continue home medications HTN -Continue home meds. Is stable Diet controlled diabetes, stable -Monitor for now . Continue sliding scale insulin a Radiological report reviewed no bleed Labs reviewed, acute kidney injury improved, hydration Pelvic and hip x-rays showed no fracture, Carotid ultrasound shows no stenosis Echocardiogram shows EF 60-65%. No wall motion abnormalities. Valves okay Awaiting EEG, pending SCDs for DVT prophylaxis Protonix PUD prophylaxis Hold ASA secondary to fall Patient is pending EEG, could possibly discharge tomorrow Discharge Planning Possible Thursday pending EEG (Sri Benton) Assessment and Plan Patient seen and examined as above Labs reviewed Awaiting EEG Discussed with RN Discussed with patient Plan of care discussed with HORSE SHOW JUDGE (Ninoska Streeter MD) Sri Benton Nov 09, 2016 14:35 Ninoska Streeter MD Nov 09, 2016 15:10
[2016-11-09] MEDS: traZODone HCL 50 MG TAB PO SCH (21:24)
[2016-11-09] MEDS: amLODIPine BESYLATE 5 MG TAB PO SCH (21:25)
[2016-11-09] MEDS: MIRTAZAPINE 15 MG TAB PO SCH (21:25)
[2016-11-09] MEDS: PANTOPRAZOLE SOD 40 MG DELAYED RELEASE TAB PO SCH (21:25)
[2016-11-10] VITALS (26 sets, daily range): BP systolic 124–162; BP diastolic 67–76; PULSE 58–84; RESP 16–18; TEMP 98–98.7; O2SAT 97–99
[2016-11-10] MEDS: LEVOTHYROXINE SODIUM 50 MCG TAB PO SCH (05:44)
[2016-11-10] MEDS: METOPROLOL TARTRATE 25 MG TAB PO SCH ×2 (10:11→21:29)
[2016-11-10] MEDS: SODIUM CHLORIDE 0.9% FLUSH 5 ML FLUSH FLUSH SCH ×2 (10:11→21:29)
[2016-11-10] MEDS: LORATADINE 10 MG TAB PO SCH (10:11)
[2016-11-10] MEDS: CITALOPRAM HYDROBROMIDE 20 MG TAB PO SCH (10:11)
--- NOTE | 2016-11-10 14:27 | HHI.PR ---
Subjective Remarks Appetite good, eating 100% No Chest pain no shortness of breath No dizziness Alert (Sri Benton) Objective Objective Results - Vital Signs Date Time Temp Pulse Resp B/P Pulse Ox O2 Delivery O2 Flow Rate FiO2 11/10/16 13:00 80 11/10/16 12:00 69 11/10/16 11:00 67 11/10/16 11:00 98.6 71 17 141/67 97 11/10/16 10:00 70 11/10/16 09:00 72 11/10/16 08:00 74 11/10/16 07:30 98.7 71 17 142/67 98 11/10/16 07:00 58 11/10/16 06:00 66 11/10/16 05:00 60 11/10/16 04:00 60 11/10/16 03:50 66 16 134/73 98 11/10/16 03:00 66 11/10/16 02:00 66 11/10/16 01:00 68 11/10/16 00:00 72 11/09/16 23:45 72 16 141/70 97 11/09/16 23:00 77 11/09/16 22:00 74 11/09/16 21:00 78 11/09/16 20:00 78 11/09/16 19:00 98.3 72 16 155/72 99 11/09/16 19:00 76 11/09/16 18:00 79 11/09/16 17:00 76 11/09/16 16:00 73 11/09/16 15:00 98.3 75 17 157/72 96 11/09/16 15:00 74 I/O 11/09/16 11/09/16 11/09/16 11/10/16 11/10/16 11/10/16 07:00 15:00 23:00 07:00 15:00 23:00 Intake Total 240 ml 600 ml 240 ml Balance 240 ml 600 ml 240 ml Intake Oral 240 ml 600 ml 240 ml # Voids 2 5 2 # Bowel Movements 0 (Sri Benton) Result Diagram: 11/07/16 1141 11/09/16 0632 ROS General: Fatigue (mild), Other (10 point review done. Mild minimal weakness, otherwise systems negative) (Sri Benton) Physical Exam Physical Exam PHYSICAL EXAMINATION GENERAL: This is a well-developed, well-nourished female who appears to be in no acute distress. She is alert and awake, responds to verbal stimuli. HEAD: Normocephalic without any lesion or mass noted. Facial features appear symmetric. OROPHARYNGEAL: Oropharynx without erythema or edema. NECK: Supple. No nuchal rigidity or lymphadenopathy. Trachea midline without deviation. CARDIAC: Regular rhythm, regular rate, S1 and S2 are heard. Murmur none; no gallops or rubs. LUNGS: Clear to auscultation bilaterally. no wheeze, rhonchi or rale. No use of accessory muscles on inspiration or expiration. ABDOMEN: Soft, nontender, no organomegaly or masses. Bowel sounds are heard in all four quadrants. No rebound. No guarding. EXTREMITIES: no edema. Pulses equal bilateral. . NEUROLOGICAL: Patient mood and affect appropriate. No focal deficit SKIN:Warm and moist Objective Remarks I'm doing okay. I don't remember them coming in here to do a test (Sri Benton) A/P Assessment and Plan (1) Fall (2) Syncope and collapse (3) CAD (coronary artery disease) (4) Hypertension (5) Hyperlipidemia (6) Hypothyroidism (7) DM (diabetes mellitus) (8) Hx of CABG (9) Depression Plan 81 year old elderly female admitted after recurrent fall, hx dementia. Initial CT concerning for bleed, brain MRI shows no bleed. Unclear if syncope, vs seizure or mechanical fall. S/P fall with closed head injury, no bleed. Etiology unclear, possible syncope vs seizure, no further syncopal episodes nor dizziness -Neuro checks, stable every 4 when necessary -Continue with IVF, gentle hydration taken by mouth fluids well -Telemetry monitoring, regular rhythm no known ectopy -Orthostatics q shift x 3, BP stable Good Appetite eating 100% -PT for evaluation and treatment. Dementia -not on medications -monitor Hx Depression -Continue with home meds CKD III -Continue with cautious -Monitor BMP Hx CAD, CABG, stable -Monitor -Continue home medications HTN -Continue home meds. Is stable Diet controlled diabetes, stable -Monitor for now . Continue sliding scale insulin a Radiological report reviewed no bleed Labs reviewed, acute kidney injury improved, hydration Pelvic and hip x-rays showed no fracture, Carotid ultrasound shows no stenosis Echocardiogram shows EF 60-65%. No wall motion abnormalities. Valves okay Awaiting EEG, pending SCDs for DVT prophylaxis Protonix PUD prophylaxis Hold ASA secondary to fall Patient is pending EEG, could possibly discharge tomorrow. EEG was canceled. Staff is researching reason . Patient is unaware if she refuses test or not. Will discuss with Dr. Streeter, patient seen on his behalf Discharge planning in process (Sri Benton) Assessment and Plan Patient seen and examined Patient refused EEG Overall a stable and good condition Above note reviewed Plan of care discussed with [employer] REMOVAL SUPERVISOR Discussed with RN Discussed with binder caser Josue discharge her today. (Ninoska Streeter MD) Sri Betnon Nov 10, 2016 14:27 Ninoska Streeter MD Nov 10, 2016 16:12
[2016-11-10] MEDS: amLODIPine BESYLATE 5 MG TAB PO SCH (21:28)
[2016-11-10] MEDS: MIRTAZAPINE 15 MG TAB PO SCH (21:29)
[2016-11-10] MEDS: traZODone HCL 50 MG TAB PO SCH (21:29)
[2016-11-10] MEDS: PANTOPRAZOLE SOD 40 MG DELAYED RELEASE TAB PO SCH (21:29)
[2016-11-11] VITALS (16 sets, daily range): BP systolic 105–144; BP diastolic 58–60; PULSE 67–93; RESP 17–18; TEMP 98.4–99.5; O2SAT 95–98
[2016-11-11] MEDS: LEVOTHYROXINE SODIUM 50 MCG TAB PO SCH (05:48)
[2016-11-11] MEDS: CITALOPRAM HYDROBROMIDE 20 MG TAB PO SCH (08:39)
[2016-11-11] MEDS: SODIUM CHLORIDE 0.9% FLUSH 5 ML FLUSH FLUSH SCH (08:39)
[2016-11-11] MEDS: METOPROLOL TARTRATE 25 MG TAB PO SCH (08:40)
[2016-11-11] MEDS: LORATADINE 10 MG TAB PO SCH (08:40)
--- NOTE | 2016-11-11 14:36 | HHI.PR ---
Subjective Remarks Patient lying on a recliner without any apparent distress Offering no complaint Denies any headache dizziness Denies any chest pain shortness of breath And denies any abdominal pain nausea vomiting Denies any genitourinary symptoms Review of systems a 10 point system unremarkable Objective Objective Results - Vital Signs Date Time Temp Pulse Resp B/P Pulse Ox O2 Delivery O2 Flow Rate FiO2 11/11/16 14:01 74 11/11/16 13:00 76 11/11/16 12:00 78 11/11/16 11:00 98.7 77 17 112/58 98 11/11/16 11:00 69 11/11/16 10:00 71 11/11/16 09:00 93 11/11/16 08:00 99.5 82 17 105/60 95 11/11/16 08:00 79 11/11/16 07:00 85 11/11/16 06:00 75 11/11/16 05:00 70 11/11/16 04:00 78 11/11/16 03:00 79 11/11/16 03:00 98.4 79 18 144/60 98 11/11/16 02:00 76 11/11/16 01:00 74 11/11/16 00:00 78 11/10/16 23:00 98.5 76 16 126/69 98 11/10/16 23:00 76 11/10/16 22:00 80 11/10/16 21:00 82 11/10/16 20:00 78 11/10/16 19:00 84 11/10/16 19:00 98.2 84 18 162/76 99 11/10/16 18:00 76 11/10/16 17:00 72 11/10/16 16:00 70 11/10/16 15:00 98.0 72 17 124/73 99 11/10/16 15:00 80 I/O 11/10/16 11/10/16 11/10/16 11/11/16 11/11/16 11/11/16 07:00 15:00 23:00 07:00 15:00 23:00 Intake Total 240 ml 720 ml 720 ml Balance 240 ml 720 ml 720 ml Intake Oral 240 ml 720 ml 720 ml # Voids 2 6 3 # Bowel Movements 0 Result Diagram: 11/07/16 1141 11/09/16 0632 Imaging Last Impressions Head CT 11/07/16 1143 Signed Impressions: Service Date/Time: Monday, November 07, 2016 12:39 - CONCLUSION: 1 cm focal area of high density seen only on a single upper image along the upper left parietal lobe. The differential diagnosis includes volume averaging of the skull versus small hemorrhage. This could be further evaluated with MRI imaging with multiplanar sequencing. Barrett Cruz MD Chest X-Ray 11/07/16 1143 Signed Impressions: Service Date/Time: Monday, November 07, 2016 12:26 - CONCLUSION: No acute disease. Barrett Cruz MD Brain MRI 11/07/16 0000 Signed Impressions: Service Date/Time: Monday, November 07, 2016 15:10 - CONCLUSION: 1. No acute hemorrhage, mass or infarction. 2. No correlate for the focal area of increased density seen on the CT. This is consistent with volume averaging with the adjacent skull. 3. Soft tissue swelling over the left parietal bone. Barrett Cruz MD Physical Exam Physical Exam GENERAL: This is a well-nourished, well-developed patient, in no apparent distress. SKIN: No rashes, ecchymoses or lesions. Cool and dry. HEAD: Atraumatic. Normocephalic. No temporal or scalp tenderness. EYES: Pupils equal round and reactive. Extraocular motions intact. No scleral icterus. No injection or drainage. ENT: Airway patent. NECK: Trachea midline. No JVD or lymphadenopathy. CARDIOVASCULAR: Regular rate and rhythm without murmurs, gallops, or rubs. RESPIRATORY: Clear to auscultation. Breath sounds equal bilaterally. No wheezes , rales, or rhonchi. GASTROINTESTINAL: Abdomen soft, non-tender, nondistended. No hepato-splenomegaly , or palpable masses. No guarding. MUSCULOSKELETAL: Bilat legs with 2+ pedal pulses. No pedal edema. NEUROLOGICAL: Awake, alert to self, son, place. Not sure of city. No focal deficits. Speech clear. Speaks and understands Kinyarw[place], some Monegasque. Follows simple commands. Pt. with dementia. A/P Assessment and Plan (1) Fall (2) Syncope and collapse (3) CAD (coronary artery disease) (4) Hypertension (5) Hyperlipidemia (6) Hypothyroidism (7) DM (diabetes mellitus) (8) Hx of CABG (9) Depression Plan 81 year old elderly female admitted after recurrent fall, hx dementia. Initial CT concerning for bleed, brain MRI shows no bleed. Unclear if syncope, vs seizure or mechanical fall. S/P fall with closed head injury, no bleed. Etiology unclear, possible syncope vs seizure, no further syncopal episodes nor dizziness -Encourage by mouth intake -Telemetry monitoring, regular rhythm no known ectopy -Neurological [place] Good Appetite eating 100% -PT for evaluation and treatment. Dementia -not on medications -monitor Hx Depression -Continue with home meds CKD III -Continue with cautious -Monitor BMP Hx CAD, CABG, stable -Monitor -Continue home medications HTN -Continue home meds. Is stable Diet controlled diabetes, stable -Monitor for now . Continue sliding scale insulin a Radiological report reviewed no bleed Labs reviewed, acute kidney injury improved, hydration Pelvic and hip x-rays showed no fracture, Carotid ultrasound shows no stenosis Echocardiogram shows EF 60-65%. No wall motion abnormalities. Valves okay She refuses EEG SCDs for DVT prophylaxis Protonix PUD prophylaxis Hold ASA secondary to fall Discussed with patient Discussed with case aide about DC planning hopefully today to SNF Ninoska Streeter MD Nov 11, 2016 14:36
--- NOTE | 2017-01-17 21:07 | HHI.DS ---
Discharge Summary Admission Date Nov 08, 2016 at 12:35 Discharge Date: Nov 11, 2016 Admitting Diagnosis Syncope, Possible ICH (1) Fall (2) Syncope and collapse (3) CAD (coronary artery disease) (4) Hypertension (5) Hyperlipidemia (6) Hypothyroidism (7) DM (diabetes mellitus) (8) Hx of CABG (9) Depression Imaging Last Impressions Head CT 11/07/16 1143 Signed Impressions: Service Date/Time: Monday, November 07, 2016 12:39 - CONCLUSION: 1 cm focal area of high density seen only on a single upper image along the upper left parietal lobe. The differential diagnosis includes volume averaging of the skull versus small hemorrhage. This could be further evaluated with MRI imaging with multiplanar sequencing. Barrett Cruz MD Chest X-Ray 11/07/16 1143 Signed Impressions: Service Date/Time: Monday, November 07, 2016 12:26 - CONCLUSION: No acute disease. Barrett Cruz MD Cervical Spine CT 11/07/16 1143 Signed Impressions: Service Date/Time: Monday, November 07, 2016 12:41 - CONCLUSION: Degenerative changes without fracture. Melvin Bustillos MD FACR Hip and Pelvis X-Ray 11/07/16 0000 Signed Impressions: Service Date/Time: Monday, November 07, 2016 12:29 - CONCLUSION: Degenerative change without fracture. Melvin Bustillos MD FACR Hip X-Ray 11/07/16 0000 Signed Impressions: Service Date/Time: Monday, November 07, 2016 12:34 - CONCLUSION: Degenerative change without fracture. Melvin Bustillos MD FACR Carotid Artery Ultrasound 11/07/16 0000 Signed Impressions: Service Date/Time: Monday, November 07, 2016 16:32 - CONCLUSION: Mild bilateral plaquing with no evidence of stenosis. Barrett Cruz MD Brain MRI 11/07/16 0000 Signed Impressions: Service Date/Time: Monday, November 07, 2016 15:10 - CONCLUSION: 1. No acute hemorrhage, mass or infarction. 2. No correlate for the focal area of increased density seen on the CT. This is consistent with volume averaging with the adjacent skull. 3. Soft tissue swelling over the left parietal bone. Barrett Cruz MD Hospital Course This is an 81 year old elderly female with PMHx of dementia, previous falls, CKD , CAD and previous CABG, diet controlled diabetes. She is on baby ASA. She was brought in via EMS after fall. According to son, she is ambulatory with walker, has dementia but able to feed self and walk to bathroom. She is supposed to use walker but refuses often. She has had previous falls in the past, last one was July 2016 and required hospitalization for monitoring. Son, Malvin, who is the caregiver heard the patient fall and found her laying on her back. She was just staring, non responsive, not following commands. After 15 minutes, she started to respond, was able to answer basic questions. She complained of neck, bilat hip, pelvic pain. She is usually alert and oriented to self and others. She doesn't know what happened, doesn't recall preceding symptoms. According to son, she has received PT at home and had been doing well. He thinks that she tripped on her shoes, as there is a new rug that he put in her room because he was afraid that she would fall and hit the floor. Pt. evaluated in the ED, initial CT of head done showed questionable area of high density. Brain MRI just completed doesn't show any bleeding. Imaging studies don't show any acute findings. Last Impressions Head CT 11/07/16 1143 Signed Impressions: Service Date/Time: Monday, November 07, 2016 12:39 - CONCLUSION: 1 cm focal area of high density seen only on a single upper image along the upper left parietal lobe. The differential diagnosis includes volume averaging of the skull versus small hemorrhage. This could be further evaluated with MRI imaging with multiplanar sequencing. Barrett Cruz MD Chest X-Ray 11/07/16 1143 Signed Impressions: Service Date/Time: Monday, November 07, 2016 12:26 - CONCLUSION: No acute disease. Barrett Cruz MD Hip and Pelvis X-Ray 11/07/16 0000 Signed Impressions: Service Date/Time: Monday, November 07, 2016 12:29 - CONCLUSION: Degenerative change without fracture. Melvin Bustillos MD FACR Hip X-Ray 11/07/16 0000 Signed Impressions: Service Date/Time: Monday, November 07, 2016 12:34 - CONCLUSION: Degenerative change without fracture. Melvin Bustillos MD FACR Brain MRI 11/07/16 0000 Signed Impressions: Service Date/Time: Monday, November 07, 2016 15:10 - CONCLUSION: 1. No acute hemorrhage, mass or infarction. 2. No correlate for the focal area of increased density seen on the CT. This is consistent with volume averaging with the adjacent skull. 3. Soft tissue swelling over the left parietal bone. Barrett Cruz MD Laboratory work up essentially unremarkable, creat slightly more elevated than norm. Son denied any recent fever, chills. Had been eating okay. Pt. admitted for further evaluation and treatment. (1) Fall (2) Syncope and collapse (3) CAD (coronary artery disease) (4) Hypertension (5) Hyperlipidemia (6) Hypothyroidism (7) DM (diabetes mellitus) (8) Hx of CABG (9) Depression During the course of the hospitalization, the following events took place 81 year old elderly female admitted after recurrent fall, hx dementia. Initial CT concerning for bleed, brain MRI shows no bleed. Unclear if syncope, vs seizure or mechanical fall. S/P fall with closed head injury, no bleed. Etiology unclear, possible syncope vs seizure, no further syncopal episodes nor dizziness -Put on telemetry monitoring, neurological checks Physical therapy order -EEG ordered, however patient refused -Patient remained neurologically intact Dementia -not on medications -monitored -Remained stable Hx Depression -Continued with home meds CKD III -Initially put on IV fluids -Monitored BMP Hx CAD, CABG, stable -Monitored -Continued home medications HTN -Continue home meds. Is stable Diet controlled diabetes, stable -Ordered Accu-Cheks with sliding scale Radiological report reviewed no bleed Labs reviewed, acute kidney injury improved, after hydration Pelvic and hip x-rays showed no fracture, Carotid ultrasound shows no stenosis Echocardiogram shows EF 60-65%. No wall motion abnormalities. Valves okay She refused EEG SCDs for DVT prophylaxis Protonix PUD prophylaxis Held ASA secondary to fall Case management consulted for DC planning Discharge plan discussed with patient's family Patient stable for discharge Patient was discharged to SNF Pt Condition on Discharge: Good Discharge Disposition: Discharge Home Discharge Instructions DIET: Follow Instructions for: Heart Healthy Diet Activities you can perform: Weight Bearing as Gita Follow up Referrals: PCP Follow-up - 1 Week Continued Medications: Acetaminophen (Acetaminophen) 325 Mg Tab 650 MG PO Q4H PRN PAIN #30 TAB Amlodipine (Amlodipine) 5 Mg Tab 5 MG PO HS Blood Pressure Management #[address] Ref [address] (Aspirin 81) 81 Mg Tabdr 81 MG PO DAILY Ref 0 TAB Baclofen (Baclofen) 10 Mg Tab 10 MG PO HS Ref 0 TAB Citalopram (Citalopram) 10 Mg Tab 10 MG PO DAILY Control Depression #30 Ref 0 TAB Levothyroxine (Levothyroxine) 50 Mcg Tab 50 MCG PO DAILY Thyroid #30 Ref 0 TAB Loratadine (Loratadine) 10 Mg Tab 10 MG PO DAILY Allergy Management Ref 0 TAB Metoprolol Tartrate (Metoprolol Tartrate) 25 Mg Tab 25 MG PO BID #60 Ref 0 TAB Mirtazapine (Mirtazapine) 15 Mg Tab 15 MG PO HS Depression Control #30 Ref 0 TAB Pantoprazole (Protonix) 40 Mg Tab 40 MG PO HS Reflux #30 Ref 0 TAB Trazodone (Trazodone) 50 Mg Tab 50 MG PO HS Control Depression #30 Ref 0 TAB Alicia Araiza Jan 17, 2017 21:07
== END 2016-11-11 16:58 | DRG 312 ==
LOC: NEDAMB 11:09 → NEDH 13:39 → NEDA 14:13 → HCIN 17:30 → OBSVTOIN 11-08 12:35 → HCIN 11-09 09:30
PROVIDERS: ADMIT Specialist; ATTEND Specialist
DX: R55 Syncope and collapse (principal); N17.9 Acute kidney failure, unspecified; E11.22 Type 2 diabetes mellitus with diabetic chronic kidney disease; I13.0 Hypertensive heart and chronic kidney disease with heart failure and stage 1 through stage 4 chronic kidney disease, or unspecified chronic kidney disease; I50.9 Heart failure, unspecified; I25.810 Atherosclerosis of coronary artery bypass graft(s) without angina pectoris; S09.90XA Unspecified injury of head, initial encounter; G30.9 Alzheimer's disease, unspecified; F02.80 Dementia in other diseases classified elsewhere, unspecified severity, without behavioral disturbance, psychotic disturbance, mood disturbance, and anxiety; N18.3 Chronic kidney disease, stage 3 (moderate); Z95.1 Presence of aortocoronary bypass graft; E78.5 Hyperlipidemia, unspecified; E03.9 Hypothyroidism, unspecified; G47.30 Sleep apnea, unspecified; I25.2 Old myocardial infarction; J45.909 Unspecified asthma, uncomplicated; R29.6 Repeated falls; W01.0XXA Fall on same level from slipping, tripping and stumbling without subsequent striking against object, initial encounter; Y92.009 Unspecified place in unspecified non-institutional (private) residence as the place of occurrence of the external cause; F32.9 Major depressive disorder, single episode, unspecified; Z79.4 Long term (current) use of insulin
CPT/HCPCS: 70450; 70553; 71010; 72125; 73502; 76937; 80048; 80053; 82550; 83735; 84484; 85025; 85610; 85730; 93005; 93306; 93880; 96374; A9577; G0378; J2270; J7030

== ENCOUNTER 2017-01-26 18:44 | Observation (INO) | payer MEDICARE, OTHER ==
[~2017-01-26] VITALS: Ht 165.1 cm; Wt 60.0 kg
[~2017-01-26 18:44] MED LIST changes: +BACL10TA PO; +LORA10TA PO; +PROT40TA PO
[2017-01-26 18:47] VITALS: BP 146/65; PULSE 64; RESP 17; TEMP 98.2; O2SAT 99
--- NOTE | 2017-01-26 18:53 | PD ---
Physical Exam Time Seen by Provider: 18:49 Narrative 81yo F w/ family stating slurred speech, dizziness, jaw pain, blurred vision, and vomited x1 today. Diet controlled diabetic. BSG in triage 155. VS reviewed. Patient seen in triage. Awaiting bed placement. Data Data Last Documented VS Vital Signs Date Time Temp Pulse Resp B/P Pulse Ox O2 Delivery O2 Flow Rate FiO2 01/26/17 18:47 98.2 64 17 146/65 99 MDM Supervised Visit with MITALI: Milka Martinez January 26, 2017 18:53
--- NOTE | 2017-01-26 19:28 | PD ---
HPI Chief Complaint: Neuro Symptoms/ Deficits Time Seen by Provider: 19:01 Travel History International Travel<30 days: No Contact w/Intl Traveler<30days: No Traveled to known affect area: No History of Present Illness HPI 81-year-old woman who presents to the emergency department brought in by family for altered mental status. 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 History is obtained mostly from the family with her. Family reports that since she fell last was in the hospital in October of this year she does really has done well. She went to a care home facility but been at home with her son for the past month or so. They report that she fell once a week or so ago but only down to her knees, did not hit her head. Yesterday she had a very good day was very lucid and awake and alert and strong. Today she's been lethargic, fatigued, weak and dizzy, with speech difficulties including slurred speech, and right sided facial droop that has been stuttering. She also had one episode of nausea and vomiting which is unusual. Over the past week or so she's also had increased incontinence. History Past Medical History Narrative Medical Alzheimer's type dementia Chronic kidney disease 9 CAD, history of CABG in 1999 Diet-controlled diabetes Hyperlipidemia Remote history of CVA/TIA with some residual memory problems Frequent falls, PNEUMOCCOCAL Vaccine (Year): 1 Menopausal: Yes : 3 Para: 3 Social History Alcohol Use: No Tobacco Use: No Allergies-Medications (Allergen,Severity, Reaction): Coded Allergies: Penicillin (Verified Allergy, Severe, 11/07/16) Zocor (Verified Allergy, Severe, 11/07/16) Shrimp (Verified Allergy, Intermediate, RASH AND SWELLING, 11/07/16) Sulfa (Verified Allergy, Mild, 11/07/16) Reported Meds & Prescriptions Reported Meds & Active Scripts Active Acetaminophen 325 Mg Tab 650 Mg PO Q4H PRN Reported Baclofen 10 Mg Tab 10 Mg PO HS Loratadine 10 Mg Tab 10 Mg PO DAILY Mirtazapine 15 Mg Tab 15 Mg PO HS Amlodipine (Amlodipine Besylate) 5 Mg Tab 5 Mg PO HS Trazodone (Trazodone HCl) 50 Mg Tab 50 Mg PO HS Aspirin 81 (Aspirin) 81 Mg Tabdr 81 Mg PO DAILY Metoprolol Tartrate 25 Mg Tab 25 Mg PO BID Levothyroxine (Levothyroxine Sodium) 50 Mcg Tab 50 Mcg PO DAILY Citalopram (Citalopram Hydrobromide) 10 Mg Tab 10 Mg PO DAILY Review of Systems Except as stated in HPI: all other systems reviewed are Neg Physical Exam Narrative GENERAL: Elderly woman, no acute distress, lying quietly in bed. SKIN: Focused skin assessment warm/dry. HEAD: Atraumatic. Normocephalic. EYES: Pupils equal and round. No scleral icterus. No injection or drainage. ENT: No nasal bleeding or discharge. Mucous membranes pink and moist. NECK: Trachea midline. No JVD. No meningismus. CARDIOVASCULAR: Regular rate and rhythm. Soft systolic murmur new the apex. RESPIRATORY: No accessory muscle use. Clear to auscultation. Breath sounds equal bilaterally. GASTROINTESTINAL: Abdomen soft, non-tender, nondistended. Hepatic and splenic margins not palpable. MUSCULOSKELETAL: No obvious deformities. No edema. NEUROLOGICAL: Awake and alert. No obvious cranial nerve deficits. No facial asymmetry. Motor grossly within normal limits. Strength full and equal upper and lower extremities. No pronator drift. Speech is low and somewhat muted, but no obvious dysarthria or aphasia. Patient is primarily Lao-speaking but seems to understand Azerbaijani well. Data Data Last Documented VS Vital Signs Date Time Temp Pulse Resp B/P Pulse Ox O2 Delivery O2 Flow Rate FiO2 01/26/17 20:35 59 16 155/66 99 Room Air 01/26/17 18:47 98.2 Orders Electrocardiogram (01/26/17 19:20) Complete Blood Count With Diff (01/26/17 19:20) Comprehensive Metabolic Panel (01/26/17 19:20) Troponin I (01/26/17 19:20) Thyroid Stimulating Hormone (01/26/17 19:20) Urinalysis - C+S If Indicated (01/26/17 19:20) Chest, Single Ap (01/26/17 19:20) Ct Brain W/O Iv Contrast(Rout) (01/26/17 19:20) Blood Glucose (01/26/17 19:20) Ecg Monitoring (01/26/17 19:20) Iv Access Insert/Monitor (01/26/17 19:20) Cath For Specimen (01/26/17 19:20) Oximetry (01/26/17 19:20) Sodium Chloride 0.9% Flush (Ns Flush) (01/26/17 19:30) Admit Order (Ed Use Only) (01/26/17 ) Labs Laboratory Tests Test 01/26/17 19:25 White Blood Count 7.1 TH/MM3 Red Blood Count 3.89 MIL/MM3 Hemoglobin 11.5 GM/DL Hematocrit 34.3 % Mean Corpuscular Volume 88.3 FL Mean Corpuscular Hemoglobin 29.5 PG Mean Corpuscular Hemoglobin 33.5 % Concent Red Cell Distribution Width 14.3 % Platelet Count 307 TH/MM3 Mean Platelet Volume 7.5 FL Neutrophils (%) (Auto) 64.4 % Lymphocytes (%) (Auto) 24.9 % Monocytes (%) (Auto) 7.4 % Eosinophils (%) (Auto) 2.6 % Basophils (%) (Auto) 0.7 % Neutrophils # (Auto) 4.6 TH/MM3 Lymphocytes # (Auto) 1.8 TH/MM3 Monocytes # (Auto) 0.5 TH/MM3 Eosinophils # (Auto) 0.2 TH/MM3 Basophils # (Auto) 0.1 TH/MM3 CBC Comment DIFF FINAL Differential Comment Urine Color YELLOW Urine Turbidity CLEAR Urine pH 5.0 Urine Specific [place] 1.019 Urine Protein NEG mg/dL Urine Glucose (UA) NEG mg/dL Urine Ketones NEG mg/dL Urine Occult Blood NEG Urine Nitrite NEG Urine Bilirubin NEG Urine Urobilinogen LESS THAN 2.0 MG/DL Urine Leukocyte Esterase TRACE Urine RBC 1 /hpf Urine WBC 2 /hpf Urine Hyaline Casts 3 /lpf Microscopic Urinalysis Comment CATH-CULT NOT IND Sodium Level 137 MEQ/L Potassium Level 4.6 MEQ/L Chloride Level 102 MEQ/L Carbon Dioxide Level 29.5 MEQ/L Anion Gap 6 MEQ/L Blood Urea Nitrogen 29 MG/DL Creatinine 1.54 MG/DL Estimat Glomerular Filtration 32 ML/MIN Rate Random Glucose 168 MG/DL Calcium Level 8.4 MG/DL Total Bilirubin 0.2 MG/DL Aspartate Amino Transf 22 U/L (AST/SGOT) Alanine Aminotransferase 17 U/L (ALT/SGPT) Alkaline Phosphatase 75 U/L Troponin I 0.02 NG/ML Total Protein 7.0 GM/DL Albumin 3.3 GM/DL Thyroid Stimulating Hormone 0.759 uIU/ML 3rd Gen [facility] Medical Decision Making Medical Screen Exam Complete: Yes Emergency Medical Condition: Yes Interpretation(s) My review of EKG: Normal sinus rhythm at a rate of 61, first-degree AV block with a CT interval A, leftward axis, anteroseptal Q waves, QRS seems a little bit wide, measured at 106. Inferolateral T-wave inversions. Compared to previous EKG from October 2016, there is no significant change. LABS: CBC remarkable for hemoglobin of 11.5. CMP remarkable for mildly elevated BUN and creatinine, 29/1.54, slightly increased from baseline of 1.2-1.4 TSH normal Troponin negative UA unremarkable. Head CT negative. Chest x-ray: No acute disease. Differential Diagnosis CVA or TIA, infection, ischemia, electrolyte abnormality, kidney disease, delirium or dementia, other Narrative Course Medical decision making INITIAL: Is an 81-year-old woman who presents to the emergency department by family for altered mental status. She's been having weakness, dizziness, with speech difficulties and reportedly some facial droop on the right. She has nonfocal exam now. We'll check labs, CT, x-ray, EKG, reassess. During her recent admission for syncope in October of this year she had workup including MRI, echo, carotid Dopplers, which was all unremarkable. FINAL: We will do mental status, some facial droop on the right concern for TIA or CVA. Patient was admitted for further evaluation. Diagnosis Primary Impression: Altered mental status Aldo Thompson MD January 26, 2017 19:28
[2017-01-26] MEDS ORDERED: SODIUM CHLORIDE 0.9% FLUSH 10 ML FLUSH IVF PRN (19:30)
[2017-01-26 19:49] LABS: AUTOMATED NEUTROPHIL # 4.6 TH/MM3 (1.8-7.7); BASOPHIL # 0.1 TH/MM3 (0-0.2); BASOPHIL % 0.7 % (0.0-2.0); EOSINOPHIL # 0.2 TH/MM3 (0-0.4); EOSINOPHIL % 2.6 % (0.0-4.0); HEMATOCRIT 34.3 % (35.0-46.0); HEMO FLAGS DIFF FINAL; LYMPH % 24.9 % (9.0-44.0); LYMPHOCYTE # 1.8 TH/MM3 (1.0-4.8); MEAN CELL VOLUME 88.3 FL (80.0-100.0); MEAN CORPUSCULAR HEMOGLOBIN 29.5 PG (27.0-34.0); MEAN CORPUSCULAR HGB CONC 33.5 % (32.0-36.0); MONO % 7.4 % (0.0-8.0); NEUT % 64.4 % (16.0-70.0); PLATELET COUNT 307 TH/MM3 (150-450); RED BLOOD COUNT 3.89 MIL/MM3 (4.00-5.30); RED CELL DISTRIBUTION WIDTH 14.3 % (11.6-17.2); WHITE BLOOD COUNT 7.1 TH/MM3 (4.0-11.0)
--- NOTE | 2017-01-26 20:00 | RADRPT ---
EXAM DATE/TIME: 01/26/2017 19:45 [facility] COMPARISON: CHEST SINGLE AP, November 07, 2016, 12:26. INDICATIONS : Syncope. MEDICAL HISTORY : Hypothyroidism. Hypercholesterolemia. Myocardial infarction. Hearing loss. Cerebrovascular accide nt. Dementia. Peripheral neuropathy. Congestive heart failure. Coronary artery disease. Hyperlipidemi a. Hypertension. Asthma. Sleep apnea. Ulcer. . Arthritis. Diabetes. Bipolar disorder. Depres juliocesar. Measles. Insomnia. SURGICAL HISTORY : Tonsillectomy. CABG. Breast biopsy. Right rotator cuff repair. Cardiac catheterization. ENCOUNTER: Initial ACUITY: 1 day PAIN SCORE: 0/10 LOCATION: Bilateral chest FINDINGS: A single view of the chest demonstrates the lungs to be symmetrically aerated without evidence of mas s, infiltrate or effusion. The cardiomediastinal contours are unremarkable. Sternotomy wires noted.. CONCLUSION: No acute disease Khadar Calix MD on January 26, 2017 at 19:57 Board Certified Radiologist. This report was verified electronically.
[2017-01-26 20:10] LABS: BLOOD, URINE NEG (NEG); GLUCOSE,URINE NEG (NEG); HYALINE CAST, URINE 3 /lpf (RARE); KETONE, URINE NEG (NEG); NITRITE,URINE NEG (NEG); URINE COLOR YELLOW (YELLW/STRAW)
[2017-01-26 20:11] LABS: COMMENT (UR) CATH-CULT NOT IND; CULTURE IF INDICATED CATH CULTURE NOT IND
--- NOTE | 2017-01-26 20:13 | RADRPT ---
EXAM DATE/TIME: 01/26/2017 19:59 [facility] COMPARISON: CT BRAIN W/O CONTRAST, November 07, 2016, 12:39. INDICATIONS : Altered mental status. RADIATION DOSE: 33.78 CTDIvol (mGy) MEDICAL HISTORY : Dementia. Alzheimer's. Cardiovascular diseaseHypertension. Diabetes. CVA. SURGICAL HISTORY : None. ENCOUNTER: Initial ACUITY: 1 day PAIN SCALE: 0/10 LOCATION: cranial TECHNIQUE: Multiple contiguous axial images were obtained of the head. Using automated exposure control and adj ustment of the mA and/or kV according to patient size, radiation dose was kept as low as reasonably a chievable to obtain optimal diagnostic quality images. FINDINGS: CEREBRUM: The ventricles are normal for age. No evidence of midline shift, mass lesion, hemorrhage or acute in farction. No extra-axial fluid collections are seen. POSTERIOR FOSSA: The cerebellum and brainstem are intact. The 4th ventricle is midline. The cerebellopontine angle i s unremarkable. EXTRACRANIAL: The visualized portion of the orbits is intact. SKULL: The calvaria is intact. No evidence of skull fracture. CONCLUSION: Normal examination. Khadar Calix MD on January 26, 2017 at 20:09 Board Certified Radiologist. This report was verified electronically.
[2017-01-26 20:17] LABS: ANION GAP 6 MEQ/L (5-15); AST (GOT) 22 U/L (15-37); BICARBONATE 29.5 MEQ/L (21.0-32.0); BLOOD UREA NITROGEN 29 MG/DL (7-18); CHLORIDE 102 MEQ/L (98-107); GLOMERULAR FILTRATION RATE 32 ML/MIN (>89); POTASSIUM 4.6 MEQ/L (3.5-5.1); SODIUM (NA) 137 MEQ/L (136-145)
[2017-01-26 20:27] LABS: ALKALINE PHOSPHATASE 75 U/L (45-117); ALT (GPT) 17 U/L (10-53); TOTAL BILIRUBIN ADULT 0.2 MG/DL (0.2-1.0)
[2017-01-26 20:35] VITALS: BP 155/66; PULSE 59; RESP 16; O2SAT 99
[2017-01-27] VITALS (10 sets, daily range): BP systolic 111–147; BP diastolic 55–77; PULSE 59–83; RESP 16–20; TEMP 97.6–98.6; O2SAT 95–99
[2017-01-27] MEDS ORDERED: BISACODYL 10 MG SUPP RECTAL PRN
[2017-01-27] MEDS ORDERED: ONDANSETRON HCL 4 MG/2 ML VIAL IVP PRN
[2017-01-27] MEDS ORDERED: SODIUM CHLORIDE 0.9% FLUSH 10 ML FLUSH IV FLUSH PRN
[2017-01-27] MEDS ORDERED: NALOXONE HCL 0.4 MG/ML AMP IV PRN
[2017-01-27] MEDS ORDERED: SENNOSIDES 8.6 MG TAB PO PRN
[2017-01-27] MEDS: SODIUM CHLOR 0.9% 1000 ML INJ 1,000 ML IV SCH ×3 (00:33→21:30)
[2017-01-27] MEDS: HEPARIN SODIUM - SQ 10,000 UNITS/ML VIAL SQ SCH ×2 (08:32→21:32)
[2017-01-27] MEDS: SODIUM CHLORIDE 0.9% FLUSH 10 ML FLUSH IV FLUSH SCH ×2 (08:32→21:30)
[2017-01-27] MEDS ORDERED: ACETAMINOPHEN 325 MG TAB PO PRN ×2 (08:45)
[2017-01-27] MEDS: METOPROLOL TARTRATE 25 MG TAB PO SCH ×2 (09:00→21:30)
[2017-01-27] MEDS: ASPIRIN EC 81 MG TABEC PO SCH (09:07)
[2017-01-27] MEDS: LORATADINE 10 MG TAB PO SCH (09:08)
[2017-01-27] MEDS: CITALOPRAM HYDROBROMIDE 20 MG TAB PO SCH (09:08)
--- NOTE | 2017-01-27 11:08 | MH ---
cc: DARLIN STREETER DATE OF ADMISSION: 01/26/2017 DATE OF : 1935 CHIEF COMPLAINT Neurological symptoms, altered mental status, falls, no travel in the last 30 days. HISTORY OF PRESENT ILLNESS: This is an 81 year-old white female who has a significant history of Alzheimer's dementia along with other comorbidities. The patient is currently altered and is unable to take infectious except occasional and occasional yes or no to her current medical state or symptoms. Her family was her initially in the emergency room and most of the information was gathered from them. I am getting my information from the record only. On the record, the family states that she fell this past October and was in the hospital this past October and was discharged to a half-way facility. She had returned home with her son for a month or so. The family noted frequent falls which involved collapsing down to her knees but not falling completely on the floor. To their knowledge she never hit her head, and she would have good and bad days. On the day of admission she was lethargic, fatigued, weak and dizzy, it is noted that she vomited one time and she complained of some jaw pain and slurred speech. They also noted and right sided facial droop with some stuttering. According to family, nausea and vomiting is not usual for this patient and she is continuing to be incontinent. PAST MEDICAL HISTORY: 1. Alzheimer's type dementia. 2. Chronic kidney disease. 3. Coronary artery disease. 4. Diet controlled diabetes. 5. Hyperlipidemia. 6. Remote history of cerebrovascular accident or transient ischemic attack. 7. Frequent falls. 8. Hypertension. PAST SURGICAL HISTORY: Coronary artery bypass graft. ALLERGIES PENICILLIN ZOCOR SHRIMP SULFA REPORTED MEDICATIONS: 1. Baclofen 2. Loratadine 3. Mirtazapine 4. Amlodipine 5. Trazodone 6. Aspirin. 7. Metoprolol 8. Levothyroxine 9. Citalopram SOCIAL HISTORY: No tobacco, alcohol or illicit drug use listed. Currently the patient is living with her son and has been in a snf setting in the past six months. REVIEW OF SYSTEMS Unable to obtain secondary to the patients altered mental status. When asked about patient about any symptoms, she denies any. PHYSICAL EXAMINATION: VITAL SIGNS: Temperature 97.8, pulse labile between 59 and 82. Respirations 18, blood pressure initially noted to be 145/155, now 135/60, o2 saturation 99 on room air. IN GENERAL: Thin, frail, white female, looks to be her stated age resting in the bed, she does awaken to verbal stimuli. Skin is pale, warm and dry. HEAD, EYES, EARS, NOSE, AND THROAT: Atraumatic, normocephalic, Pupils equal, round, reactive to light and accommodation, pale mucous membranes, thin. NECK: Supple. CARDIOVASCULAR SYSTEM: S1, S2, with soft systolic murmur at the left sternal border. No lower extremity edema and pulses are intact. PULMONARY: Essentially clear, anterior and posterior with no rales, wheezes or rhonchi. ABDOMEN: Flat soft, nontender, nondistended. Active bowel sounds. MUSCULOSKELETAL; She is randomly moving her extremities with purpose. She has generalized weakness in strength. NEUROLOGIC: Flat affect. No extreme anxiety, does answer yes or no at times to communication with her. PSYCHIATRIC: Her psychiatric affect is flat, no increased anxiety. Speech is clear but soft. DIAGNOSTIC DATA: White blood count 7.1, red blood cells 3.89, hemoglobin 11.5, hematocrit 34.3, platelet count 307. Differential is normal. Chemistries; sodium 137, potassium 4.6, chloride 102, carbon dioxide 29.5, Amnion gap 6, BUN 29, creatinine 1.54. Glomerular filtration rate 32, random glucose 168. Calcium 8.4, albumin 3.3. Thyroid stimulating hormone 0.759. Urine is yellow, clear. PH 5, specific gravity 1.019, protein glucose, ketones, occult blood, nitrates, bilirubin, are negative, trace of leukocyte esterase. IMAGING: The imaging shows chest x-ray to have no acute disease. Head CT is normal examination. ASSESSMENT: 1. Dementia, Alzheimer's type Dementia with altered mental status. 2. Chronic kidney disease. 3. Diabetes mellitus type 2, uncontrolled. 4. Anemia, probable secondary to chronic disease. 5. Generalized weakness and fatigue. 6. Falls. 7. History of hypertension. 8. History of coronary artery disease. PLAN: My plan is to admit initially for observation status. In the emergency room the patient had intravenous access obtained intravenous fluids gentle hydration. She was started on electrocardiogram monitoring and her blood glucose was checked. We will continue some intravenous hydration, gentle hydration, o2 if needed, bowel regimen with laxatives and/or stool softers. The patient will be placed on a heart healthy diet, activity can be out of bed for bedside commode or chair. But only with assistance. Vital signs q four hours. Her medications will be reconciled. We will have PT to work with the patient and evaluate her mobility needs, we will also look at electroencephalogram, and evaluate her needs. To my knowledge she is full code and full aggressive care and we will follow. Darlin Streeter MD DICTATED BY: ROSA López JP/yulia /9:26 AM /10:08 AM PT SEEN AND EXAMINED ABOVE CHART REVIEWED INCLUDING MEDS LABS AND RAD RAMANA AND NOTES DW PT LISET LEE ABOUT PLAN OF CARE LISET WILSON
--- NOTE | 2017-01-27 15:47 | EKG ---
Date Performed: 01/26/2017 Time Performed: 19:21:43 PTAGE: 81 years EKG: Sinus rhythm WITH FIRST DEGREE AV BLOCK MARKED LEFT AXIS DEVIATION INCOMPLETE RIGHT BUNDLE BRANCH BLOCK POSSIBLE ANTERIOR MYOCARDIAL INFARCTION Compared to prior tracing no significant change ABNORMAL ECG PREVIOUS TRACING : 11/07/2016 17.01 DOCTOR: Margaux Cordero Interpretating Date/Time 01/27/2017 15:45:10
--- NOTE | 2017-01-27 17:18 | MG ---
cc: NABEEL CID M.D., SUSAN M. Sex: F DATE OF : [birth year] [id number] REFERRING: Juanita Benton Room: [facility]. Awake, drowsy, asleep study, with photic stimulation. An 81 year-old woman with slurred speech, dizziness, jaw pain, vomited once, with a history of hypothyroidism, neuropathy, dizziness, cardiac disease. MEDICATIONS: Heparin, Celexa, Claritin, aspirin. CT is reported as normal. DESCRIPTION OF RECORD There is some mild slowing, predominantly a 5, 6 hertz, 20 to 60 microvolts. Overall symmetrical slowing with theta range. No evidence of any epileptiform features. No hyperventilation performed. Photic stimulation with mild driving response. IMPRESSION Mild slowing consistent with encephalopathic process of various etiology versus somnolence, versus medicine effect. No evidence of any epileptiform features. Clinical correlation. MD PETAR Temple/MANDI /4:15 PM /5:12 PM
--- NOTE | 2017-01-27 17:18 | RADRPT ---
EXAM DATE/TIME: 01/27/2017 16:41 [facility] COMPARISON: No previous studies available for comparison. INDICATIONS : Altered mental status. MEDICAL HISTORY : Congestive heart failure. Hypertension. Hypothyroidism. SURGICAL HISTORY : CABG Tonsillectomy. ENCOUNTER: Initial ACUITY: 1 day PAIN SCORE: 0/10 LOCATION: head TECHNIQUE: Multiplanar, multisequence MRI of the brain was performed without contrast. FINDINGS: CEREBRUM: The ventricles are normal for age. No evidence of midline shift, mass lesion, hemorrhage or acute in farction. No extraaxial fluid collections are seen. The pituitary gland and suprasellar cistern are normal in configuration. WHITE MATTER: Mild signal abnormalities are seen in the white matter. POSTERIOR FOSSA: The cerebellum and brainstem are intact. The 4th ventricle is midline. The cerebellopontine angle is unremarkable. The cerebellar tonsils are normal in position. DIFFUSION IMAGING: No focal areas of restricted diffusion are seen. No evidence of acute infarction. EXTRACRANIAL: The visualized portions of the orbits and paranasal sinuses are unremarkable. CONCLUSION: No acute disease. No evidence of acute infarct, hemorrhage, mass or edema. Minimal cerebral white matter disease characteristic of small vessel changes. David Sim MD on January 27, 2017 at 17:15 Board Certified Radiologist. This report was verified electronically.
[2017-01-27] MEDS ORDERED: amLODIPine BESYLATE 5 MG TAB PO SCH (21:00)
[2017-01-27] MEDS ORDERED: BACLOFEN 10 MG TAB PO SCH (21:00)
[2017-01-27] MEDS ORDERED: traZODone HCL 50 MG TAB PO SCH (21:00)
[2017-01-27] MEDS ORDERED: MIRTAZAPINE 15 MG TAB PO SCH (21:00)
[2017-01-28 05:51] VITALS: BP 141/77; PULSE 77; RESP 18; TEMP 98; O2SAT 97
[2017-01-28] MEDS ORDERED: LEVOTHYROXINE SODIUM 50 MCG TAB PO SCH (06:00)
[2017-01-28] MEDS: SODIUM CHLOR 0.9% 1000 ML INJ 1,000 ML IV SCH (06:40)
[2017-01-28 08:00] VITALS: BP 185/85; PULSE 68; RESP 18; TEMP 97.8; O2SAT 98
--- NOTE | 2017-01-28 08:30 | HHI.PR ---
Subjective Remarks Resting in bed Awakens to verbal stimuli, but still drowsy this morning No acute shortness of breath No Acute pain Pleasant confusion to place, but answers simple questions with yes or no Afebrile (Sri Benton) Objective Objective Results - Vital Signs Date Time Temp Pulse Resp B/P Pulse Ox O2 Delivery O2 Flow Rate FiO2 01/28/17 05:51 98.0 77 18 141/77 97 01/27/17 23:00 98.0 77 18 138/74 97 01/27/17 19:49 98.0 77 18 147/77 97 01/27/17 19:29 98 01/27/17 15:50 97.6 83 16 111/57 95 01/27/17 12:09 98.6 67 16 143/66 96 I/O 01/27/17 01/27/17 01/27/17 01/28/17 01/28/17 01/28/17 07:00 15:00 23:00 07:00 15:00 23:00 Intake Total 1100 ml Output Total 500 ml Balance 600 ml Intake Oral 600 ml IV Total 500 ml Output Urine Total 500 ml # Voids 1 1 (Sri Benton) Result Diagram: 01/26/17192401/26/171924 ROS General: Fatigue (debility), Weakness (generalized), Other (10 point ROS done positives noted otherwise systems unremarkable, no shortness of breath no edema) Pulmonary: SOB (none) Neuro/MS: Confusion (pleasant, does seem to be feeling better and resting better at night) (Sri Benton) Physical Exam Physical Exam PHYSICAL EXAMINATION GENERAL: This is a well-developed, well-nourished elderly female who appears to be in no acute distress. She is drowsy, but awakens easily. HEAD: Normocephalic, atraumatic Facial features appear symmetric. OROPHARYNGEAL: Oropharynx without edema., Tongue dry NECK: Supple. Trachea midline without deviation. CARDIAC: Regular rhythm, regular rate, S1 and S2 are heard. No audible murmur LUNGS: Clear to auscultation bilaterally. No rhonchi no wheezes, low volumes ABDOMEN: Soft, nontender, Bowel sounds are heard in all four quadrants. EXTREMITIES: edema. 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 Dementia, Alzheimer's type Dementia with altered mental status. 2. Chronic kidney disease. 3. Diabetes mellitus type 2, uncontrolled. 4. Anemia, probable secondary to chronic disease. 5. Generalized weakness and fatigue. 6. Falls. 7. History of hypertension. 8. History of coronary artery disease. PLAN: Vital signs reviewed, afebrile normal ranges, home meds initiated per need Labs reviewed, patient has acute kidney injury, with chronic kidney disease noted, mild with probable mild dehydration, but improved Urine shows no UTI Dementia, Alzheimer's, affect is calm and appropriate for now. EEG is pending Anemia probable secondary to chronic disease but no acute blood loss noted , monitor, Diabetes type 2 Accu-Cheks with sliding scale, monitor, heart healthy diabetic diet Generalized weakness and fatigue with recent falls. PT ordered to eval and treat and expert recommendations for her discharge needs. Walker at bedside. She is not to be up without calling for assistance Hypertension, stable with her medications we'll monitor for any needs. History of coronary artery disease, patient has no shortness of breath no chest pain, monitor medical management Discussed With: Nurse, Family (patient), Other (Dr. Streeter, seen on his behalf) (Sri Benton) Assessment and Plan Patient seen and examined as above Labs and radiological data reviewed Discussed with RN Monitor discussed with PRINTMAKER Discussed with showcase trimmer Plan to DC home with home health care as patient has good family support. Patient is to follow primary care doctor as outpatient (Ninoska Streeter MD) Sri Benton January 28, 2017 08:30 Ninoska Streeter MD January 28, 2017 09:22
--- NOTE | 2017-01-28 09:26 | HHI.FF ---
Face to Face Verification Diagnosis: (1) possible syncope (2) Altered mental status (3) Hypertension (4) Hypothyroidism Physical Therapy Order: Evaluate and Treat Home Health Nursing Order: Medical education I have seen patient Batsheva Birch on 01/28/17. My clinical findings support the need for the requested home health care services because: Ltd mobility - disease progression Deconditioned w/ increased weakness I certify that my clinical findings support that this patient is homebound because: Unsafe to leave home unassisted Ninoska Streeter MD January 28, 2017 09:26
[2017-01-28] MEDS: SODIUM CHLORIDE 0.9% FLUSH 10 ML FLUSH IV FLUSH SCH (10:03)
[2017-01-28] MEDS: CITALOPRAM HYDROBROMIDE 20 MG TAB PO SCH (10:03)
[2017-01-28] MEDS: METOPROLOL TARTRATE 25 MG TAB PO SCH (10:04)
[2017-01-28] MEDS: LORATADINE 10 MG TAB PO SCH (10:04)
[2017-01-28] MEDS: HEPARIN SODIUM - SQ 10,000 UNITS/ML VIAL SQ SCH (10:04)
[2017-01-28] MEDS: ASPIRIN EC 81 MG TABEC PO SCH (10:04)
== END 2017-01-28 14:04 | disposition home or self-care (01) ==
LOC: NEPE 18:44 → NEDA 22:29 → NEPHCDU 01-27 01:49
PROVIDERS: ADMIT Specialist; ATTEND Specialist
DX: G30.9 Alzheimer's disease, unspecified (principal); F02.80 Dementia in other diseases classified elsewhere, unspecified severity, without behavioral disturbance, psychotic disturbance, mood disturbance, and anxiety; H53.8 Other visual disturbances; R47.81 Slurred speech; R53.1 Weakness; R29.6 Repeated falls; I12.9 Hypertensive chronic kidney disease with stage 1 through stage 4 chronic kidney disease, or unspecified chronic kidney disease; E11.22 Type 2 diabetes mellitus with diabetic chronic kidney disease; N18.9 Chronic kidney disease, unspecified; D64.9 Anemia, unspecified; I25.10 Atherosclerotic heart disease of native coronary artery without angina pectoris; E78.5 Hyperlipidemia, unspecified; Z86.73 Personal history of transient ischemic attack (TIA), and cerebral infarction without residual deficits; Z88.2 Allergy status to sulfonamides; Z88.8 Allergy status to other drugs, medicaments and biological substances; Z88.0 Allergy status to penicillin; Z91.013 Allergy to seafood; Z79.82 Long term (current) use of aspirin; Z95.1 Presence of aortocoronary bypass graft
CPT/HCPCS: 70450; 70551; 71010; 80053; 81001; 84443; 84484; 85025; 93005; 95819; 97162; 99285; G0378; G8987; G8988; J1644; J7030; P9612

== ENCOUNTER 2017-03-25 20:47 | Emergency (ER) | payer MEDICARE, OTHER ==
[~2017-03-25 20:47] MED LIST changes: -PROT40TA PO
[2017-03-25 20:54] VITALS: BP 156/70; PULSE 55; RESP 16; TEMP 98.1; O2SAT 98
--- NOTE | 2017-03-25 20:59 | PD ---
HPI Chief Complaint: Fall Time Seen by Provider: 20:55 Travel History International Travel<30 days: No Contact w/Intl Traveler<30days: No Traveled to known affect area: No History of Present Illness HPI Appropriate 82-year-old female presents emergency department after slip and fall at home. She is a history of dementia and is oriented to self and place only. According to EMS the patient's power of lease buyer whom she lives with wanted her transported because last time she fell she hit her head and had some bleeding in her head. The patient has no complaints currently by the for me or EMS. She denies any head pain neck pain chest pain or abdominal pain. She is pleasantly confused. Denies loss of consciousness to me. PFSH Past Medical History Alzheimer's Disease: Yes Arthritis: Yes Asthma: Yes Autoimmune Disease: No Blood Disorders: No Anxiety: No Depression: Yes Heart Rhythm Problems: No Cancer: No Cardiac Catheterization: Yes Cardiovascular Problems: Yes (OPEN HEART, HTN) High Cholesterol: Yes Chemotherapy: No Chest Pain: Yes Congestive Heart Failure: Yes Coronary Artery Disease: Yes Dementia: Yes Diabetes: Yes Diminished Hearing: No Endocrine: Yes Gastrointestinal Disorders: Yes Glaucoma: No Genitourinary: No Headaches: Yes Hypertension: Yes Immune Disorder: No Implanted Vascular Access Dvce: No Insomnia: Yes Kidney Stones: No Musculoskeletal: Yes Neurologic: Yes (PERIPHERAL NEUROPATHY) Psychiatric: No Reproductive: No Respiratory: Yes Myocardial Infarction: Yes (1999) Radiation Therapy: No Renal Failure: Yes Seizures: No Sickle Cell Disease: No Sleep Apnea: Yes (NO CPAP MACHINE) Thyroid Disease: Yes (HYPO) Ulcer: Yes PNEUMOCCOCAL Vaccine (Year): 1 Menopausal: Yes : 3 Para: 3 Past Surgical History Abdominal Surgery: Yes AICD: No Cardiac Surgery: No (CABG TIMES 1999) Coronary Artery Bypass Graft: Yes (x2,) Ear Surgery: No Eye Surgery: No Genitourinary Surgery: No Gynecologic Surgery: No Neurologic Surgery: Yes (DIZZINES, NUMBNESS IN FINGERS, FEET. MINI STROKE) Oral Surgery: No Pacemaker: No Thoracic Surgery: No Tonsillectomy: Yes Other Surgery: Yes (NEG BIOPSY LT BREAST) Social History Alcohol Use: No Tobacco Use: No Substance Use: No Allergies-Medications (Allergen,Severity, Reaction): Coded Allergies: Penicillin (Verified Allergy, Severe, 03/25/17) Zocor (Verified Allergy, Severe, 03/25/17) Shrimp (Verified Allergy, Intermediate, RASH AND SWELLING, 03/25/17) Sulfa (Verified Allergy, Mild, 03/25/17) Reported Meds & Prescriptions Reported Meds & Active Scripts Active Reported Baclofen 10 Mg Tab 10 Mg PO HS Mirtazapine 15 Mg Tab 15 Mg PO HS Amlodipine (Amlodipine Besylate) 5 Mg Tab 5 Mg PO HS Trazodone (Trazodone HCl) 50 Mg Tab 50 Mg PO HS Aspirin 81 (Aspirin) 81 Mg Tabdr 81 Mg PO DAILY Metoprolol Tartrate 25 Mg Tab 25 Mg PO BID Levothyroxine (Levothyroxine Sodium) 50 Mcg Tab 50 Mcg PO DAILY Citalopram (Citalopram Hydrobromide) 10 Mg Tab 10 Mg PO DAILY Review of Systems Except as stated in HPI: all other systems reviewed are Neg Physical Exam Narrative GENERAL: Well-developed well-nourished, quite pleasant female in no apparent distress. SKIN: Focused skin assessment warm/dry. HEAD: Atraumatic. Normocephalic. No horton signs no raccoons eyes. EYES: Pupils equal and round. No scleral icterus. No injection or drainage. ENT: No nasal bleeding or discharge. Mucous membranes pink and moist. NECK: Trachea midline. No JVD. No midline C-spine tenderness. No step-off. CARDIOVASCULAR: Regular rate and rhythm. No murmur appreciated. RESPIRATORY: No accessory muscle use. Clear to auscultation. Breath sounds equal bilaterally. GASTROINTESTINAL: Abdomen soft, non-tender, nondistended. Hepatic and splenic margins not palpable. MUSCULOSKELETAL: No obvious deformities. No clubbing. No cyanosis. No edema. NEUROLOGICAL: Awake and alert. Oriented 2. Cranial nerves II through XII are grossly intact and nonfocal, 5 out of 5 strength in all 4 extremity's. PSYCHIATRIC: Appropriate mood and affect; insight and judgment normal. Data Data Last Documented VS Vital Signs Date Time Temp Pulse Resp B/P Pulse Ox O2 Delivery O2 Flow Rate FiO2 03/25/17 20:54 98.1 55 16 156/[address] Brain W/O Iv Contrast(Rout) (03/25/17 ) Ct Cerv Spine W/O Contrast (03/25/17 ) Electrocardiogram (03/25/17 ) Electrocardiogram (03/25/17 ) MDM Medical Decision Making Medical Screen Exam Complete: Yes Emergency Medical Condition: Yes Interpretation(s) EKG shows sinus bradycardia, left axis deviation, normal R-wave progression. No concerning ST segment changes. Comparison to 01/26/2017 shows no significant change. Differential Diagnosis Fall, head injury, neck injury, syncope seems unlikely. Narrative Course Patient roomed in the emergency department, her son arrived shortly after and states is not first time this is happened, the patient apparently goes to her physician gets a good bill of health and comes home and thinks that she can ambulate without use of her walker. This is what she did this afternoon and was looking for something and related to her room where she fell onto a padded surface which she has had custom installed for her. The patient appears well and in no distress, no external signs of trauma. CAT scan of her head and neck are negative, EKG is reassuring. She discussed with her and her son fall prevention and need for follow-up with a primary care physician. She stable for discharge at this time. Last [address] 03/25/17 0000 Signed Impressions: Service Date/Time: Saturday, March 25, 2017 21:08 - CONCLUSION: Normal examination. Liam Lau MD Cervical Spine CT 03/25/17 0000 Signed Impressions: Service Date/Time: Saturday, March 25, 2017 21:08 - CONCLUSION: 1. Moderate degenerative change. No acute findings. No significant change from October 2016. Liam Lau MD Diagnosis Primary Impression: Fall Additional Impression: Head injury, closed, with brief LOC Additional Instructions: Recommend he call your primary care physician tomorrow for further recommendations. Disposition: 01 DISCHARGE HOME Condition: Stable Win Villarreal MD Mar 25, 2017 20:59
--- NOTE | 2017-03-25 21:23 | RADRPT ---
EXAM DATE/TIME: 03/25/2017 21:08 [facility] COMPARISON: CT BRAIN W/O CONTRAST, January 26, 2017, 19:59. INDICATIONS : Trauma, fall. Abrasion to forehead. RADIATION DOSE: 27.89 CTDIvol (mGy) MEDICAL HISTORY : Dementia. Alzheimer's. cardiovascular disease. hypertension. diabetes. cva. SURGICAL HISTORY : None. ENCOUNTER: Initial ACUITY: 1 day PAIN SCALE: 0/10 LOCATION: cranial TECHNIQUE: Multiple contiguous axial images were obtained of the head. Using automated exposure control and adj ustment of the mA and/or kV according to patient size, radiation dose was kept as low as reasonably a chievable to obtain optimal diagnostic quality images. DICOM format image data is available electro nically for review and comparison. FINDINGS: CEREBRUM: The ventricles are normal for age. No evidence of midline shift, mass lesion, hemorrhage or acute in farction. No extra-axial fluid collections are seen. POSTERIOR FOSSA: The cerebellum and brainstem are intact. The 4th ventricle is midline. The cerebellopontine angle i s unremarkable. EXTRACRANIAL: The visualized portion of the orbits is intact. SKULL: The calvaria is intact. No evidence of skull fracture. CONCLUSION: Normal examination. Liam Lau MD on March 25, 2017 at 21:19 Board Certified Radiologist. This report was verified electronically.
--- NOTE | 2017-03-25 21:40 | RADRPT ---
EXAM DATE/TIME: 03/25/2017 21:08 [facility] COMPARISON: CT CERVICAL SPINE W/O CONTRAST, November 07, 2016, 12:41. INDICATIONS : Trauma, fall. RADIATION DOSE: 19.93 CTDIvol (mGy) MEDICAL HISTORY : Dementia. Alzheimer's. cardiovascular disease. hypertension. diabetes. cva. SURGICAL HISTORY : None. ENCOUNTER: Initial ACUITY: 1 day PAIN SCALE: 0/10 LOCATION: neck TECHNIQUE: Volumetric scanning of the cervical spine was performed. Multiplanar reconstructions in the sagittal, coronal and oblique axial planes were performed. Using automated exposure control and adjustment o f the mA and/or kV according to patient size, radiation dose was kept as low as reasonably achievable to obtain optimal diagnostic quality images. DICOM format image data is available electronically f or review and comparison. FINDINGS: There is moderate degenerative disc disease throughout cervical spine. No fracture or spondylolisthes is. No significant bony canal stenosis. No prevertebral soft tissue swelling. CONCLUSION: 1. Moderate degenerative change. No acute findings. No significant change from October 2016. Liam Lau MD on March 25, 2017 at 21:34 Board Certified Radiologist. This report was verified electronically.
--- NOTE | 2017-03-26 18:09 | EKG ---
Date Performed: 03/25/2017 Time Performed: 21:59:34 PTAGE: 82 years EKG: SINUS BRADYCARDIA WITH OCCASIONAL SUPRAVENTRICULAR PREMATURE COMPLEXES MARKED LEFT AXIS DEV IATION MODERATE INTRAVENTRICULAR CONDUCTION DELAY Compared to previous tracing, there's been a slight increase in the lateral ST segment changes, and a slowing of the HR, but no other significant serial change ABNORMAL ECG NO PREVIOUS TRACING DOCTOR: Ping Herron Interpretating Date/Time 03/26/2017 18:08:12
== END 2017-03-25 22:40 | disposition home or self-care (01) ==
LOC: NEPE 20:47
DX: S06.9X1A Unspecified intracranial injury with loss of consciousness of 30 minutes or less, initial encounter (principal); R94.31 Abnormal electrocardiogram [ECG] [EKG]; E11.9 Type 2 diabetes mellitus without complications; I10 Essential (primary) hypertension; E07.9 Disorder of thyroid, unspecified; G30.9 Alzheimer's disease, unspecified; F02.80 Dementia in other diseases classified elsewhere, unspecified severity, without behavioral disturbance, psychotic disturbance, mood disturbance, and anxiety; E78.00 Pure hypercholesterolemia, unspecified; I25.2 Old myocardial infarction; W01.0XXA Fall on same level from slipping, tripping and stumbling without subsequent striking against object, initial encounter; Y92.009 Unspecified place in unspecified non-institutional (private) residence as the place of occurrence of the external cause; Z87.39 Personal history of other diseases of the musculoskeletal system and connective tissue; Z87.09 Personal history of other diseases of the respiratory system; Z86.59 Personal history of other mental and behavioral disorders; Z86.79 Personal history of other diseases of the circulatory system; Z87.19 Personal history of other diseases of the digestive system; Z86.69 Personal history of other diseases of the nervous system and sense organs
CPT/HCPCS: 70450; 72125; 93005